=== PATIENT | male | born 1965 | race Caucasian/White ===

== ENCOUNTER 2021-07-29 16:21 | Inpatient (IN) | payer OTHER ==
--- OUTSIDE RECORDS SUMMARY | 2021-07-29 16:24 | XMS REPORT | Continuity of Care Document ---
:1965 Author Organization [facility] t Address [address] [place] [address] Care Team Providers Name Role Phone Taqueria-Keilyo_A_AH Attending Clinician Unavailable Taqueria-Mbayo_A_AH Admitting Clinician Unavailable Payers Payer Name Policy Type Policy Number Effective Date Expiration Date S hema [facility] [place] - [id number] 2019 [employer] 00:00:00 (MEDICARE REPLACEMENT/ADVANT AGE - HMO) Problems Condition Condition Condition Status Onset Resolution Last Treating Co mments Source Name Details Category Date Date Treatment Clinician Date Recurrent Recurrent Problem [facility] - [facility] depressive Me moria disorder, disorder, l in partial in partial Ou tpati remission remission ent Clinics Acute Acute Problem Active [facility] exacerb[facility] exacerbati Lina kes - on of on of Memoria chronic chronic l obstructiv obstructiv Ou tpati e e ent pulmonary pulmonary Clin ics disease disease (COPD) (COPD) Pure Pure Problem Active [facility]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 Medications Ordered Filled Start Stop Current Ordering Indication Dosage Frequency Signature Comments Components Source Medication Medication Date Date Medication? Clinician (SIG) Name Name Albuterol Albuterol Yes Donald [address] [facility] Sulfate Sulfate 7-25 Alexandra needed [facility] - 00:[facility]: Memoria 00 l Outpati ent Clinics Symbicort Symbicort 2019- No Donald [address] [facility] 7-25 - Alexandra [facility] - [facility] Sertraline Sertraline Yes Donald [address] [facility] HCl HCl [facility] Atorvastati Atorvastati Yes Donald not [facility] n Calcium n Calcium Alexandra defined L [facility] Lisinopril Lisinopril Yes Donald [address] [facility] Alexandra [facility] ent Clinics Procedures This patient has no known procedures. Encounters Start End Encounter Admission Attending Care Care Encounter Source Date/Time Date/Time Type Type Clinicians Facility Department ID 2019-10-26 2019-10-26 Outpatient Taqueria-Mbayo VFP VFP [id number] [facility] 06:18:00 06:18:00 _A_AH [id number] Family Practic e 2019-10-26 2019-10-26 Outpatient Taqueria-Mbayo VFP VFP [id number] [facility] 06:18:00 06:18:00 _A_AH [id number] Family Practic e 2019-10-26 2019-10-26 Outpatient Taqueria-Mbayo VFP VFP [id number] [facility] 06:18:00 06:18:00 _A_AH [id number] Family Practic e 2018-03-23 2018-03-23 Outpatient Cinda Pond [id number] [facility] 13:45:00 13:45:00 [facility] 2018-02-08 2018-02-08 Outpatient Cinda Pond [id number] [facility] 11:00:00 11:00:00 [facility] Results This patient has no known results.
[2021-07-29] MEDS ORDERED: METOPROLOL TARTRATE 5 MG/5 ML INJ IV ONE ×2 (17:03→21:21)
[2021-07-29 17:18] LABS: Absolute Lymphocytes (CBC) 1.9 K/uL (0.7-4.9); Basophils % 0.8 % (0-1.3); Hematocrit 43.9 % (39.6-49.0); Lymphocytes % 21.5 % (15.3-44.8); MPV 9.5 fL (7.6-11.3); RBC Red Blood Cell Count 4.44 M/uL (4.33-5.43)
[2021-07-29 17:20] LABS: Protime INR 1.52
[2021-07-29] MEDS ORDERED: ENOXAPARIN 80 MG/0.8 ML SQ ONE (17:46)
[2021-07-29] MEDS ORDERED: NA CHLORIDE 0.9% 500 ML ONE (17:46)
--- NOTE | 2021-07-29 18:00 | RAD REPORT ---
EXAM DESCRIPTION: RAD - Chest Single View - 07/29/2021 5:30 pm CLINICAL HISTORY: DYSPNEA COMPARISON: None TECHNIQUE: AP portable chest image was obtained 07/29/2021 5:30 pm . FINDINGS: Baseline examination shows diffusely prominent interstitial pattern throughout both lung f ields with alveolar opacification scattered in the mid and lower lung kay. Cardiomegaly is present along with prominent vasculature. There is fullness of each hilar region. Trachea is in the midline. Heart and vasculature are normal. No measurable pleural effusion and no pneumothorax. No acute bony abnormality seen. No acute aortic findings suspected. IMPRESSION: Baseline study show was diffusely prominent interstitial and alveolar opacities with car diomegaly and vascular engorgement. CHF/volume overload would be the most likely etiology. Infectious etiology including COVID-19 pneumon ia cannot be excluded and needs correlation with clinical presentation.
[2021-07-29 18:05] LABS: Albumin 3.4 g/dL (3.4-5.0); Bilirubin Direct 0.5 mg/dL (0-0.2); Bilirubin Total 1.3 mg/dL (0.2-1.0); Magnesium 2.3 mg/dL (1.8-2.4); Potassium 4.6 mmol/L (3.5-5.1); Protein, Total 7.1 g/dL (6.4-8.2); Thyroid Stimulating Hormone 2.35 uIU/mL (0.360-3.740); Troponin (Emerg Dept Use Only) 0.02 ng/mL (0.0-0.045)
--- NOTE | 2021-07-29 18:23 | EDPHYS ---
Physician Documentation [facility] Name: Naveed Vieira Age: 55 yrs Sex: Male : 1965 Arrival Date: 07/29/2021 Time: 16:33 Bed 14 Private MD: ED Physician Montez Chowdhury HPI: 07/29 18:11 This 55 yrs old Male presents to ER via Ambulatory with complaints of Breathing jr8 Difficulty. 18:11 Is a 55-year-old male patient that presented to the emergency room with 1 week history jr8 of shortness of breath and palpitations. Patient stated that he got worse today which brought him in for further evaluation. Patient denies any recent upper respiratory infections, fevers, chest pain, drug abuse. Patient does admit to occasional alcohol use. Patient stated that he is supposed to be on medication for mood disorder and blood pressure but currently has discontinued those.. Historical: - Allergies: 16:40 No Known Allergies; ld1 - Home Meds: 16:40 None [Active]; ld1 - PMHx: 16:40 Kidney stone; ld1 16:41 Chronic obstructive lung disease; Asthma; ld1 - PSHx: 16:41 None; ld1 - Immunization history:: Adult Immunizations up to date, Client reports having NOT received the Covid vaccine. - Social history:: Smoking status: Patient reports the use of cigarette tobacco products, smokes one pack cigarettes per day. Patient uses alcohol, on a daily basis. Patient/guardian denies using street drugs. ROS: 18:11 Eyes: Negative for injury, pain, redness, and discharge, ENT: Negative for injury, jr8 pain, and discharge, Neck: Negative for injury, pain, and swelling, Abdomen/GI: Negative for abdominal pain, nausea, vomiting, diarrhea, and constipation, Back: Negative for injury and pain, MS/Extremity: Negative for injury and deformity, Skin: Negative for injury, rash, and discoloration, Neuro: Negative for headache, weakness, numbness, tingling, and seizure. 18:11 Cardiovascular: Positive for orthopnea, palpitations. 18:11 Respiratory: Positive for dyspnea on exertion, shortness of breath. Exam: 18:18 Constitutional: This is a well developed, well nourished patient who is awake, alert, jr8 and in no acute distress. Neck: Trachea midline, no thyromegaly or masses palpated, and no cervical lymphadenopathy. Supple, full range of motion without nuchal rigidity, or vertebral point tenderness. No Meningismus. 18:18 Respiratory: Lungs have equal breath sounds bilaterally, clear to auscultation and percussion. No rales, rhonchi or wheezes noted. No increased work of breathing, no retractions or nasal flaring. Abdomen/GI: Soft, non-tender, with normal bowel sounds. No distension or tympany. No guarding or rebound. No evidence of tenderness throughout. Back: No spinal tenderness. No costovertebral tenderness. Full range of motion. Skin: Warm, dry with normal turgor. Normal color with no rashes, no lesions, and no evidence of cellulitis. MS/ Extremity: Pulses equal, no cyanosis. Neurovascular intact. Full, normal range of motion. Neuro: Awake and alert, GCS 15, oriented to person, place, time, and situation. Cranial nerves II-XII grossly intact. Motor strength 5/5 in all extremities. Sensory grossly intact. 18:18 Cardiovascular: Rate: tachycardic, Rhythm: irregularly irregular, Pulses: Pulses are 2+ in right radial artery and left radial artery. Heart sounds: normal, normal S1and S2, no S3 or S4, no murmur, no rub, no gallop, Edema: is not appreciated, JVD: is not appreciated. Vital Signs: 16:38 BP 120 / 108; Pulse 110; Resp 22; Temp 97.4(TE); Pulse Ox 100% on R/A; Weight 79.38 kg; ld1 Height 5 ft. 6 in. (167.64 cm); Pain 0/10; 17:05 BP 148 / 107; Pulse 177; Resp 20; Pulse Ox 99% ; vg1 17:12 BP 120 / 107; Pulse 142; vg1 17:18 BP 122 / 96; Pulse 132; vg1 17:24 BP 107 / 88; Pulse 125; vg1 16:38 Body Mass Index 28.25 (79.38 kg, 167.64 cm) ld1 MDM: 16:58 Patient medically screened. 8 18:20 Data reviewed: vital signs, nurses notes, lab test result(s), EKG, radiologic studies, jr8 plain films, ultrasound. Data interpreted: Pulse oximetry: on room air is 99 %. Interpretation: normal. Counseling: I had a detailed discussion with the patient and/or guardian regarding: the historical points, exam findings, and any diagnostic results supporting the discharge/admit diagnosis, lab results, radiology results, the need for further work-up and treatment in the hospital. 07/29 16:58 Order name: Basic Metabolic Panel [email or web address]] 07/29 16:58 Order name: CBC with Diff [facility] [[email or web address]] 07/29 16:58 Order name: LFT's; Complete Time: 18:10 [facility] [[email or web address]] 07/29 16:58 Order name: Magnesium; Complete Time: 18:10 [facility] [[email or web address]] 07/29 16:58 Order name: NT PRO-BNP; Complete Time: 18:10 [facility] [[email or web address]] 07/29 16:58 Order name: PT-INR; Complete Time: 17:29 [facility] [[email or web address]] 07/29 16:58 Order name: Troponin (emerg Dept Use Only); Complete Time: 18:10 [facility] [[email or web address]] 07/29 16:58 Order name: TSH; Complete Time: 18:10 [facility] [[email or web address]] 07/29 16:58 Order name: T4 Free; Complete Time: 18:10 [facility] [[email or web address]] 07/29 16:59 Order name: Basic Metabolic Panel; Complete Time: 18:10 EDAK 07/29 16:59 Order name: CBC with Automated Diff; Complete Time: 17:29 EDAK 07/29 18:18 Order name: Lipase; Complete Time: 18:43 07/29 18:46 Order name: SARS-COV-2 RT PCR; Complete Time: 19:32 EDMS 07/29 16:58 Order name: XRAY Chest (1 view); Complete Time: 18:10 [facility] [[email or web address]] 07/29 16:58 Order name: EKG; Complete Time: 16:59 07/29 16:58 Order name: Cardiac monitoring; Complete Time: 17:02 [facility] [[email or web address]] 07/29 16:58 Order name: EKG - Nurse/Tech; Complete Time: 17:02 07/29 16:58 Order name: IV Saline Lock; Complete Time: 17:25 07/29 16:58 Order name: Labs collected and sent; Complete Time: 17:25 [email or web address]] 07/29 16:58 Order name: O2 Per Protocol; Complete Time: 17:02 07/29 16:58 Order name: O2 Sat Monitoring; Complete Time: 17:07/29 18:11 Order name: US Abdomen Limited; Complete Time: 20:02 jr8 Administered Medications: 17:09 Drug: Metoprolol 5 mg Route: IVP; Site: right antecubital; vg1 17:13 Drug: Metoprolol 5 mg Route: IVP; Site: right antecubital; vg1 17:19 Drug: Metoprolol 5 mg Route: IVP; Site: right antecubital; vg1 18:20 Follow up: Response: No adverse reaction; Pt heart rate decreased vg1 18:11 Drug: Lovenox (enoxaparin) 1 mg/kg Route: Sub-Q; Site: abdomen; vg1 18:11 Drug: NS 0.9% 500 ml Route: IV; Rate: bolus; Site: left hand; vg1 20:29 Follow up: IV Status: Completed infusion; IV Intake: 500ml bb 19:28 CANCELLED (Other Intervention Used): Metoprolol TARTRATE 50 mg PO once la1 19:32 Drug: Digoxin 0.5 mg Route: IVP; Site: right antecubital; kd3 Disposition: 07/30 09:02 Co-signature as Attending Physician, Montez Chowdhury MD I agree with the assessment and khari plan of care. Disposition Summary: 07/29/21 18:22 Hospitalization Ordered Hospitalization Status: Inpatient Admission 8 Provider: Pankaj Mead [facility] [[email or web address]] Location: Telemetry/MedSurg (Inpatient) [facility] [[email or web address]] Condition: Stable jr8 Problem: new jr8 Symptoms: have improved jr8 Bed/Room Type: Standard [facility] [[email or web address]] Room Assignment: 430(07/29/21 19:46) Diagnosis - Persistent atrial fibrillation - with RVR jr8 - Acute systolic (congestive) heart failure jr Forms: - Medication Reconciliation Form jr8 - SBAR form jr8 Signatures: Dispatcher [employer] Montez Nunes MD MD cha Roszak, Josh, PA PA jr8 Konrad Meadows FNP-C POWERHOUSE ENGINEER-Cla1 Brenda Vargas, RN RN cg Meera Vargas RN RN vg1 Kelly Mills RN RN ld1 Kay Ziegler RN RN kd3 Dianna Shankar RN bb Corrections: (The following items were deleted from the chart) 07/29 16:42 16:40 PMHx: Kidney disease; ld1 ld1 18:46 17:30 CORONAVIRUS+MRDANY.BRZ ordered. EDMS EDMS : 18:55 Metoprolol TARTRATE 50 mg PO once ordered. la1 la1 46 18:22 jr8 cg
--- NOTE | 2021-07-29 18:23 | ER ---
Nurse's Notes [facility] Name: Naveed Vieira Age: 55 yrs Sex: Male : 1965 Arrival Date: 07/29/2021 Time: 16:33 Bed 14 Private MD: Diagnosis: Persistent atrial fibrillation-with RVR;Acute systolic (congestive) heart failure Presentation: 07/29 16:38 Chief complaint: Patient states: I run out of breath easily when walking. pt c/o SOB. ld1 Coronavirus screen: At this time, the client does not indicate any symptoms associated with coronavirus-19. Ebola Screen: No symptoms or risks identified at this time. Initial Sepsis Screen: Does the patient meet any 2 criteria? No. Patient's initial sepsis screen is negative. Does the patient have a suspected source of infection? No. Patient's initial sepsis screen is negative. Risk Assessment: Do you want to hurt yourself or someone else? Patient reports no desire to harm self or others. Onset of symptoms was July 29, 2021. 16:38 Method Of Arrival: Ambulatory ld1 16:38 Acuity: INDIO 3 ld1 Triage Assessment: 16:41 General: Appears in no apparent distress. uncomfortable, Behavior is calm, cooperative, ld1 appropriate for age. Pain: Denies pain. EENT: No signs and/or symptoms were reported regarding the EENT system. Neuro: Level of Consciousness is awake, alert, obeys commands, Oriented to person, place, time, situation, Appropriate for age. Cardiovascular: Capillary refill < 3 seconds Patient's skin is warm and dry. Cardiovascular: Rhythm is sinus tachycardia. Respiratory: Reports shortness of breath Airway is patent Respiratory effort is even, labored, Respiratory pattern is regular, symmetrical, Onset: The symptoms/episode began/occurred suddenly, the patient has mild shortness of breath. GI: Abdomen is flat, non-distended. : No signs and/or symptoms were reported regarding the genitourinary system. Derm: No signs and/or symptoms reported regarding the dermatologic system. Musculoskeletal: No signs and/or symptoms reported regarding the musculoskeletal system. Historical: - Allergies: 16:40 No Known Allergies; ld1 - Home Meds: 16:40 None [Active]; ld1 - PMHx: 16:40 Kidney stone; ld1 16:41 Chronic obstructive lung disease; Asthma; ld1 - PSHx: 16:41 None; ld1 - Immunization history:: Adult Immunizations up to date, Client reports having NOT received the Covid vaccine. - Social history:: Smoking status: Patient reports the use of cigarette tobacco products, smokes one pack cigarettes per day. Patient uses alcohol, on a daily basis. Patient/guardian denies using street drugs. Screenin:27 Abuse screen: Denies threats or abuse. Nutritional screening: No deficits noted. bb Tuberculosis screening: No symptoms or risk factors identified. Fall Risk None identified. Assessment: 17:10 General: Appears in no apparent distress. uncomfortable, Behavior is calm, cooperative. vg1 Pain: Denies pain. Neuro: Level of Consciousness is awake, alert, obeys commands, Oriented to person, place, time, situation. Cardiovascular: Reports shortness of breath, Patient's skin is warm and dry. Rhythm is atrial fibrillation with rapid ventricular response. Respiratory: Reports shortness of breath at rest on exertion cough that is Airway is patent Respiratory effort is even, labored, Respiratory pattern is tachypnea. GI: Patient currently denies diarrhea, nausea, vomiting. : No signs and/or symptoms were reported regarding the genitourinary system. EENT: No signs and/or symptoms were reported regarding the EENT system. Derm: Skin is intact, is healthy with good turgor. Musculoskeletal: Circulation, motion, and sensation intact. 20:24 Reassessment: Patient is alert, oriented x 3, equal unlabored respirations, skin bb warm/dry/pink. Neuro:. Cardiovascular: Capillary refill < 3 seconds Patient's skin is warm and dry. Rhythm is atrial fibrillation with rapid ventricular response. Respiratory: Respiratory effort is even, unlabored, Respiratory pattern is regular, Breath sounds are coarse bilaterally. Derm: Skin is pink, warm \T\ dry. Musculoskeletal: Circulation, motion, and sensation intact. report called to Padma CHOW for room 430. Vital Signs: 16:38 BP 120 / 108; Pulse 110; Resp 22; Temp 97.4(TE); Pulse Ox 100% on R/A; Weight 79.38 kg; ld1 Height 5 ft. 6 in. (167.64 cm); Pain 0/10; 17:05 BP 148 / 107; Pulse 177; Resp 20; Pulse Ox 99% ; vg1 17:12 BP 120 / 107; Pulse 142; vg1 17:18 BP 122 / 96; Pulse 132; vg1 17:24 BP 107 / 88; Pulse 125; vg1 16:38 Body Mass Index 28.25 (79.38 kg, 167.64 cm) ld1 ED Course: 16:33 Patient arrived in ED. kc5 16:40 Triage completed. ld1 16:41 Arm band placed on left wrist. ld1 16:58 Anshul Ward PA is PHCP. jr8 16:58 Montez Chowdhury MD is Attending Physician. jr8 17:02 Meera Vargas, RN is Primary Nurse. vg1 17:08 Inserted saline lock: 18 gauge in right antecubital area, using aseptic technique. dh4 Blood collected. 17:25 Inserted saline lock: 20 gauge in left hand, using aseptic technique. ,using aseptic vg1 technique. completed by Ana CHOW. 17:30 XRAY Chest (1 view) In Process Unspecified. EDMS 18:21 Pankaj Mead is Hospitalizing Provider. jr8 19:12 US Abdomen Limited In Process Unspecified. EDMS 19:23 Report given to Melissa CHOW. vg1 20:27 Patient has correct armband on for positive identification. bb 20:27 No provider procedures requiring assistance completed. Patient admitted, IV remains in bb place. Administered Medications: 17:09 Drug: Metoprolol 5 mg Route: IVP; Site: right antecubital; vg1 17:13 Drug: Metoprolol 5 mg Route: IVP; Site: right antecubital; vg1 17:19 Drug: Metoprolol 5 mg Route: IVP; Site: right antecubital; vg1 18:20 Follow up: Response: No adverse reaction; Pt heart rate decreased vg1 18:11 Drug: Lovenox (enoxaparin) 1 mg/kg Route: Sub-Q; Site: abdomen; vg1 18:11 Drug: NS 0.9% 500 ml Route: IV; Rate: bolus; Site: left hand; vg1 20:29 Follow up: IV Status: Completed infusion; IV Intake: 500ml bb 19:28 CANCELLED (Other Intervention Used): Metoprolol TARTRATE 50 mg PO once la1 19:32 Drug: Digoxin 0.5 mg Route: IVP; Site: right antecubital; kd3 Intake: 20:29 IV: 500ml; Total: 500ml. vivian Outcome: 18:22 Decision to Hospitalize by Provider. 8 20:27 Admitted to Tele accompanied by tech, via wheelchair, room 430, with chart, Report bb called to Padma CHOW 20:27 Condition: stable 20:27 Instructed on the need for admit. 20:29 Patient left the ED. mw2 Signatures: Dispatcher [employer] EDMS Dianna Shankar, RN RN bb Anshul Ward PA PA jr8 Hernan Fernandez mw2 Jamison Dorantes 4 Meera Vargas RN RN 1 Kelly Mills RN RN ld1 Kay Ziegler RN RN kd3 Serena Hodge kc5 Konrad Meadows NETWORK SECURITY OFFICER[facility] Corrections: (The following items were deleted from the chart) 16:40 16:38 Acuity: INDIO 2 ld1 ld1 16:42 16:40 PMHx: Kidney disease; ld1 ld1 18:46 18:12 CORONAVIRUS+MR.LAB.FEROZ drawn and sent. [facility] [place]
--- NOTE | 2021-07-29 19:13 | P.HP ---
Certification for Inpatient Patient admitted to: Observation With expected LOS: <2 Midnights Patient will require the following post-hospital care: None Practitioner: I am a practitioner with admitting privileges, knowledge of patient current condition, hospital course, and medical plan of care. Services: Services provided to patient in accordance with Admission requirements found in Title 42 Section 412.3 of the Code of Federal Regulations Patient History Date of Service: 07/29/21 Primary Care Provider: None Reason for admission: New onset A. fib RVR History of Present Illness: 55-year-old male with history of COPD, asthma, alcohol and tobacco abuse presents the emergency department for shortness of breath. Patient reports increasing shortness of breath over the course of last week or so. Upon arrival to the emergency department patient noted to be in atrial fibrillation with rapid ventricular response with rates up to 170. Patient was treated with 3 doses of Lopressor 5 mg IV as well as p.o. Lopressor and IV digoxin in the emergency department with some improvement in the rate currently around 120-130. Blood pressure has maintained throughout stay in the emergency department. Labs were significant for creatinine 1.28 BUN 20 GFR 58 glucose 130 7T bili 1.3D bili 0.5 AST 645 ALT 539 alk phos 262 BNP 3137 lipase 64, abdominal ultrasound including liver and gallbladder currently pending. Patient does admit to drinking 3-4 tall boys per day every day in addition to smoking 2 packs/day. Patient was counseled extensively on need for alcohol and tobacco cessation. ED provider wishes to admit for new onset A. fib with rapid ventricular response. - Past Medical/Surgical History -: COPD/asthma -: Alcohol abuse -: Tobacco abuse -: Appendectomy Psychosocial/ Personal History: Unemployed, lives at home with family - Family History Father -: Diabetes Mother -: Diabetes - Social History Smoking Status: Current every day smoker Counseled patient to stop smoking for: less than 10 minutes Smoking therapy provided: No (Patient declined) Alcohol use: Yes CD- Drugs: Yes Caffeine use: Yes Place of Residence: Home Review of Systems 10-point ROS is otherwise unremarkable Respiratory: Cough, Shortness of Breath, Wheezing Cardiovascular: Palpitations, Light Headedness Physical Examination - Physical Exam General: Alert, In no apparent distress, Oriented x3 HEENT: Atraumatic, PERRLA, Mucous membr. moist/pink, EOMI, Sclerae nonicteric Neck: Supple, 2+ carotid pulse no bruit, No LAD, Without JVD or thyroid abnormality Respiratory: Normal air movement, Expiratory wheezes Cardiovascular: Normal S1 S2, Irregular heart rate/rhythm (A. fib RVR rate 130) Capillary refill: <2 Seconds Gastrointestinal: Normal bowel sounds, No tenderness Musculoskeletal: No tenderness Integumentary: No rashes Neurological: Normal speech, Normal strength at 5/5 x4 extr, Normal tone, Normal affect - Studies Laboratory Data (last 24 hrs) 07/29/21 17:06: Lipase 64 L 07/29/21 17:06: PT 17.6 H, INR 1.52 07/29/21 17:06: WBC 9.00, Hgb 14.3, Hct 43.9, Plt Count 264 07/29/21 17:06: Sodium 137, Potassium 4.6, BUN 20 H, Creatinine 1.28, Glucose 137 H, Magnesium 2.3, Total Bilirubin 1.3 H, AST 645 H*, ALT 539 H*, Alkaline Phosphatase 262 H Assessment and Plan - Plan Assessment: New onset atrial fibrillation with rapid ventricular response Acute hepatic injury likely secondary to chronic alcohol abuse COPD Tobacco abuse Plan: New onset atrial fibrillation with rapid ventricular response: Continue with p.o. metoprolol, IV digoxin x2 for better rate control, echocardiogram ordered. Cardiology consult in place. We will also continue with full dose anticoagulation with Lovenox at this time. Monitor on telemetry, obtain thyroid panel and urine drug screen. Acute hepatic injury likely secondary to chronic alcohol abuse: Patient admits to drinking 3 to 4 tablets/day, counseled on need for alcohol cessation. Ultrasound of the liver and gallbladder pending, GI is available news production assistant if necessary. We will also obtain hepatitis and HIV panel. COPD: As needed albuterol inhaler Tobacco abuse: Counseled on need for tobacco cessation. Patient declined NicoDerm patch. DVT PPX: Lovenox full Code status: Discharge Plan: Home Plan to discharge in: 24 Hours - Advance Directives Does patient have a Living Will: No Does patient have a Durable POA for Healthcare: Yes - Code Status/Comfort Care Code Status Assessed: Yes (Full code) Critical Care: No Time Spent Managing Pts Care (In Minutes): 55
[2021-07-29] MEDS ORDERED: DIGOXIN 0.25 MG/ML AMP ONE (19:21)
[2021-07-29] MEDS ORDERED: METOPROLOL TAR 25 MG TAB ONE (19:21)
--- NOTE | 2021-07-29 19:58 | RAD REPORT ---
EXAM DESCRIPTION: US - Abdomen Exam Limited - 07/29/2021 7:12 pm CLINICAL HISTORY: elevated LFTs. R/O Cirrhosis COMPARISON: No comparisons FINDINGS: Liver is 19-20 cm in maximum dimension. No capsule nodularity or focal liver parenchymal l esion. No significant degree of fatty infiltration is identifiable. There are no specific sonographic findings to indicate cirrhosis. Doppler evaluation shows no portal vein abnormality. No gallstones or sludge identified in a normal size gallbladder. No wall of pericholecystic fluid is present. Gallbladder wall thickness is upper normal. No biliary tree dilatation. IMPRESSION: Liver is prominent at 19-20 cm with no focal liver lesions seen. No specific findings fo r cirrhosis. Pericholecystic fluid and borderline gallbladder wall thickening. No stones or sludge seen. This cou ld be secondary to sonographically occult hepatic parenchymal disease. Correlation can also be made w ith any findings of acute gallbladder disease.
[2021-07-29] MEDS ORDERED: ALBUTEROL INHALER 60 PUFF/8 GM IH PRN (20:56)
[2021-07-29] MEDS ORDERED: ONDANSETRON 4 MG/2 ML VIAL IV PRN (20:56)
[2021-07-29] MEDS: METOPROLOL TAR 50 MG TAB PO SCH (21:19)
[2021-07-29] MEDS ORDERED: METOPROLOL TARTRATE 5 MG/5 ML INJ IV STA (21:22)
[2021-07-29] MEDS: ENOXAPARIN 80 MG/0.8 ML SQ SCH (21:31)
[2021-07-29 21:49] VITALS: BMI 28.2
[2021-07-29] MEDS ORDERED: Magnesium Sulfate 2gm IVPB 2 G/50 ML BAG IV ONE (22:17)
[2021-07-29] MEDS ORDERED: NA CHLORIDE 0.9% 500 ML IV ONE (22:19)
[2021-07-29 23:21] LABS: Urine Appearance CLEAR (Clear); Urine Blood NEGATIVE (Negative); Urine Color DK YELLOW (Yellow); Urine Glucose NEGATIVE (Negative); Urine Protein 1+ (Negative); Urine Specific Gravity >=1.030 (1.005-1.030)
[2021-07-29 23:31] LABS: Urine Bilirubin NEGATIVE (Negative); Urine Microscopic Reflex ORDER UMIC
[2021-07-29 23:51] LABS: Urine Bacteria <20 /HPF (NONE SEEN); Urine RBC <5 /HPF (NONE SEEN); Urine Urothelial Cells <5 /HPF (NONE SEEN)
[2021-07-30] MEDS: DIGOXIN 0.25 MG/ML AMP IV SCH ×2 (00:34→09:28)
[2021-07-30] MEDS ORDERED: METOPROLOL TARTRATE 5 MG/5 ML INJ IV STA (02:57)
[2021-07-30 03:42] LABS: Basophils % 1.3 % (0-1.3); Hematocrit 45.4 % (39.6-49.0); MPV 10.2 fL (7.6-11.3)
[2021-07-30 04:00] LABS: Albumin 3.2 g/dL (3.4-5.0); Bilirubin Total 1.4 mg/dL (0.2-1.0); Magnesium 2.5 mg/dL (1.8-2.4); Potassium 4.9 mmol/L (3.5-5.1); Protein, Total 6.9 g/dL (6.4-8.2)
[2021-07-30] MEDS: THIAMINE HCL 100 MG TABLET PO SCH (09:33)
[2021-07-30] MEDS: FOLIC ACID 1 MG TABLET PO SCH (09:33)
[2021-07-30] MEDS: ENOXAPARIN 80 MG/0.8 ML SQ SCH ×2 (09:33→21:57)
[2021-07-30] MEDS: METOPROLOL TAR 50 MG TAB PO SCH ×2 (09:33→21:56)
--- NOTE | 2021-07-30 16:22 | EKG ---
Test Date: 2021-07-29 Test Time: 16:41:19 Chief Hospital Administrator: ALP MEASUREMENT RESULTS: Intervals: Rate: 184 [place]: QRSD: 78 QT: 238 QTc: 416 [place]: P: [place]: QRS: 86 T: -90 INTERPRETIVE STATEMENTS: Atrial fibrillation with rapid ventricular response Septal infarct, age undetermined Abnormal ECG No previous ECG available for comparison Electronically Signed On 07-30-21 16:21:14 WANT AD RECEIVER by Marin Alas
--- NOTE | 2021-07-30 19:25 | P.PN ---
Subjective Date of Service: 07/30/21 Primary Care Provider: None Chief Complaint: New onset A. fib RVR Patient reports feeling much better today compared to yesterday. He states his breathing is much better. His heart rate has improved. Physical Examination - Vital Signs Temperature: 96.8 F Blood Pressure: 123/84 Pulse: 113 Respirations: 19 Pulse Ox (%): 98 - Physical Exam General: Alert, In no apparent distress, Oriented x3 HEENT: Mucous membr. moist/pink, Sclerae nonicteric Neck: Supple, JVD not distended Respiratory: Normal air movement, Other (Mild bibasilar Rales) Cardiovascular: No edema, Regular rate/rhythm, Normal S1 S2 Capillary refill: <2 Seconds Gastrointestinal: Normal bowel sounds, Soft and benign, Non-distended, No tenderness Musculoskeletal: No swelling Integumentary: No rashes, No erythema Neurological: Normal strength at 5/5 x4 extr - Studies Laboratory Data (last 24 hrs) 07/30/21 02:58: Sodium 138, Potassium 4.9, BUN 19 H, Creatinine 1.17, Glucose 110 H, Magnesium 2.5 H, Total Bilirubin 1.4 H, AST 1172 H* D, ALT 789 H* D, Alkaline Phosphatase 284 H, Triglycerides 84, Cholesterol 102, HDL Cholesterol 32 L, Cholesterol/HDL Ratio 3.19 07/30/21 02:58: WBC 8.20, Hgb 14.7, Hct 45.4, Plt Count 266 Assessment And Plan - Current Problems (Diagnosis) (1) Acute systolic heart failure Current Visit: Yes Status: Acute (2) Alcoholic cardiomyopathy Current Visit: Yes Status: Acute (3) Rapid atrial fibrillation Current Visit: Yes Status: Acute (4) Acute liver failure Current Visit: Yes Status: Acute (5) Hepatic congestion Current Visit: Yes Status: Acute - Plan Patient's echocardiogram reported an EF of 10% indicating alcoholic cardiomyopathy with hepatic congestion. Continue supportive measures. Avoid IV fluid. Lasix IV as needed. Atrial fibrillation likely secondary to advanced LV dysfunction. Continue metoprolol. Case discussed with Dr. Alas who recommend patient to stop drinking alcohol. No other cardiac intervention. Start lisinopril. Monitor for alcohol withdrawal and initiate CIWA.
[2021-07-31 03:43] LABS: Basophils % 0.9 % (0-1.3); Hematocrit 45.8 % (39.6-49.0); Lymphocytes % 23.7 % (15.3-44.8); MPV 9.6 fL (7.6-11.3); RBC Red Blood Cell Count 4.55 M/uL (4.33-5.43)
[2021-07-31 03:56] LABS: Albumin 2.9 g/dL (3.4-5.0); Bilirubin Total 0.6 mg/dL (0.2-1.0); Magnesium 2.1 mg/dL (1.8-2.4); Potassium 4.4 mmol/L (3.5-5.1); Protein, Total 6.4 g/dL (6.4-8.2)
--- NOTE | 2021-07-31 07:39 | ECHO ---
HEIGHT: 5 ft 6 in WEIGHT: 175 lb 0 oz DATE OF STUDY: 07/30/[address]: Konrad Meadows NP 2-DIMENSIONAL: YES M.MODE: YES DOPPLER: YES COLOR FLOW: YES TDS: PORTABLE: DEFINITY: BUBBLE STUDY: DIAGNOSIS: ATRIAL FIBRILLATION CARDIAC HISTORY: CATHERIZATION: NO SURGERY: NO PROSTHETIC VALVE: NO PACEMAKER: NO MEASUREMENTS (cm) DIASTOLIC (NORMALS) SYSTOLIC (NORMALS) IVSd 0.9 (0.6-1.2) LA Diam 4.3 (1.9-4.0) LVEF 12% LVIDd 5.9 (3.5-5.7) LVIDs 5.6 (2.0-3.5) %FS 6% LVPWd 0.9 (0.6-1.2) Ao Diam 2.7 (2.0-3.7) 2 DIMENSIONAL ASSESSMENT: RIGHT ATRIUM: NORMAL LEFT ATRIUM: DILATED RIGHT VENTRICLE: NORMAL LEFT VENTRICLE: DILATED TRICUSPID VALVE: NORMAL MITRAL VALVE: NORMAL PULMONIC VALVE: NORMAL AORTIC VALVE: NORMAL PERICARDIAL EFFUSION: NONE AORTIC ROOT: NORMAL LEFT VENTRICULAR WALL MOTION: SEVERE GLOBAL HYPOKINESIS DOPPLER/COLOR FLOW: MILD MITRAL, TRICUSPID AND AORTIC REGURGITATION. COMMENTS: SEVERE GLOBAL HYPOKINESIS. EJECTION FRACTION 12%. MILD MITRAL, TRICUSPID AND AORTIC REGURGITATION. LEFT VENTRICULAR DEFECT. LEFT ATRIAL ENLARGEMENT. ATRIAL FIBRILLATION. NO THROMBUS. TECHNOLOGIST: MIKE GONZALEZ
[2021-07-31] MEDS: THIAMINE HCL 100 MG TABLET PO SCH (08:25)
[2021-07-31] MEDS: ENOXAPARIN 80 MG/0.8 ML SQ SCH ×2 (08:25→20:39)
[2021-07-31] MEDS: FOLIC ACID 1 MG TABLET PO SCH (08:26)
[2021-07-31] MEDS: METOPROLOL TAR 50 MG TAB PO SCH ×2 (08:26→20:39)
[2021-07-31] MEDS: lisinopriL 5 MG TAB PO SCH (08:27)
[2021-07-31] MEDS ORDERED: DIGOXIN 0.25 MG/ML AMP IV ONE (12:00)
--- NOTE | 2021-07-31 17:21 | P.PN ---
Subjective Date of Service: 07/31/21 Primary Care Provider: None Chief Complaint: New onset A. fib RVR Patient reports feeling much better today compared to yesterday. Patient heart rate has been running between 90 and 170. His heart rate increases with the slightest exertion. Physical Examination - Vital Signs Temperature: 98.2 F Blood Pressure: 153/94 Pulse: 117 Respirations: 16 Pulse Ox (%): 96 - Physical Exam General: Alert, In no apparent distress, Oriented x3 HEENT: Mucous membr. moist/pink Neck: JVD not distended Respiratory: Clear to auscultation bilaterally, Normal air movement Cardiovascular: Irregular heart rate/rhythm Gastrointestinal: Normal bowel sounds, Soft and benign, Non-distended, No tenderness Musculoskeletal: No swelling Integumentary: No rashes, No erythema Neurological: Normal strength at 5/5 x4 extr Assessment And Plan - Current Problems (Diagnosis) (1) Acute systolic heart failure Current Visit: Yes Status: Acute (2) Alcoholic cardiomyopathy Current Visit: Yes Status: Acute (3) Rapid atrial fibrillation Current Visit: Yes Status: Acute (4) Acute liver failure Current Visit: Yes Status: Acute (5) Hepatic congestion Current Visit: Yes Status: Acute - Plan Patient's echocardiogram reported an EF of 12% indicating alcoholic cardiomyopathy with hepatic congestion. Avoid IV fluid. Lasix IV as needed. Atrial fibrillation likely secondary to advanced LV dysfunction. Continue metoprolol and titrate. Also added digoxin due to uncontrolled A. fib. Patient seen by cardiology-Dr. Griffith who recommend titrating his metoprolol for rate control. No other cardiac intervention. Started low-dose lisinopril. Monitor for alcohol withdrawal and initiate CIWA. He is high risk for noncompliance. Patient is a candidate for hospice. Social service consult for hospice evaluation.
--- NOTE | 2021-07-31 19:00 | CON ---
Date of Consultation: 07/31/2021 Reason For Consultation: Atrial fibrillation and congestive heart failure. History Of Present Illness: A 55-year-old male, history of chronic alcoholism, presented with signif icant shortness of breath and heart failure symptoms, started on IV diuretics and started to feel bet ter on that. However, he is in atrial fibrillation with rapid ventricular response and responded wel l to rate-controlling medicines. Heart rate is around 100 now. No chest pain. Past Medical History: Reported none except for alcoholism. Medications: None. Allergies: NO KNOWN DRUG ALLERGIES. Family History: No premature coronary disease, cancer. Social History: He is heavy drinker on a daily basis. Does not use any drugs. Review of Systems: All systems reviewed and they were negative except mentioned in the HPI. Physical Examination: Vital Signs: Temperature is 96.4, pulse is between 90 and 110, breathing at 14, blood pressure 102/8 9. General: Pleasant middle-aged male, in no apparent distress. Head and Neck: Pupils are equal, reactive to light. Intact eye movements. No JVD. No cervical lym phadenopathy. Neck: Supple. Thyroid is not enlarged. Lungs: Clear to auscultation bilaterally. No rhonchi, rales, or crackles. No accessory muscle use. Heart: Irregularly irregular. No extra sounds. Abdomen: Soft, nontender. Bowel sounds positive. No organomegaly. No masses or hernia. No rigidi ty or rebound. Extremities: No edema, clubbing, cyanosis. Intact pulses. Skin: No rash. Neurologic: Alert, awake, oriented x3. No acute focal deficits appreciated. Investigations: Liver enzymes are elevated, ALT is down to 554 from 800 and BUN is 14, creatinine 1. 23. Hemoglobin 14.8. Assessment And Plan: 1.Severe systolic dysfunction, likely related to alcoholism. However, coronary artery disease is po ssibility. We will plan on coronary angiogram on him. Had a long discussion with him counseling him against alcohol and alcohol being a toxic agent for the heart and possibly it is playing a major rol e in his EF drop. The patient understands and plan to quit. 2.Atrial fibrillation. Rate is acceptable. Continue beta chapin. Continue lisinopril and Lovenox for now. Use IV Lopressor if needed if the heart rate goes above 110, otherwise attempt to increase the short-acting Toprol for 75 mg twice a day and see if the blood pressure will handle it. As his low ejection fraction could be due to a combination of the atrial fibrillations tachycardia in duced cardiomyopathy versus coronary artery disease, we will plan for coronary angiogram on this gee ent. /MAR Voice ID: [id number] Report ID: [id number]
[2021-08-01 05:13] LABS: Absolute Lymphocytes (CBC) 1.9 K/uL (0.7-4.9); Basophils % 1.2 % (0-1.3); Hematocrit 45.6 % (39.6-49.0); Lymphocytes % 28.8 % (15.3-44.8); MPV 9.3 fL (7.6-11.3); RBC Red Blood Cell Count 4.57 M/uL (4.33-5.43)
[2021-08-01 05:31] LABS: Bilirubin Total 0.9 mg/dL (0.2-1.0); Magnesium 1.9 mg/dL (1.8-2.4); Potassium 3.9 mmol/L (3.5-5.1); Protein, Total 6.7 g/dL (6.4-8.2)
[2021-08-01] MEDS: METOPROLOL TAR 50 MG TAB PO SCH ×2 (08:31→20:05)
[2021-08-01] MEDS: DIGOXIN 0.125 MG TABLET PO SCH (08:32)
[2021-08-01] MEDS: THIAMINE HCL 100 MG TABLET PO SCH (08:32)
[2021-08-01] MEDS: ENOXAPARIN 80 MG/0.8 ML SQ SCH ×2 (08:32→20:06)
[2021-08-01] MEDS: FOLIC ACID 1 MG TABLET PO SCH (08:32)
[2021-08-01] MEDS: lisinopriL 5 MG TAB PO SCH (08:32)
[2021-08-01] MEDS ORDERED: POTASSIUM CL SA 10 MEQ TAB PO ONE (09:00)
--- NOTE | 2021-08-01 16:22 | P.PN ---
Subjective Date of Service: 08/01/21 Primary Care Provider: None Chief Complaint: New onset A. fib RVR Patient reports feeling much better and wants to go home. His heart rate has been running between 105 to 170. His heart rate increases with the slightest exertion. His blood pressure readings are better than yesterday. Physical Examination - Vital Signs Temperature: 97.8 F Blood Pressure: 135/87 Pulse: 113 Respirations: 18 Pulse Ox (%): 97 - Physical Exam General: Alert, In no apparent distress, Oriented x3 HEENT: Mucous membr. moist/pink Neck: JVD not distended Respiratory: Clear to auscultation bilaterally, Normal air movement Cardiovascular: Regular rate/rhythm, Normal S1 S2 Gastrointestinal: Soft and benign, Non-distended, No tenderness Musculoskeletal: No swelling Integumentary: No rashes Neurological: Normal strength at 5/5 x4 extr Assessment And Plan - Current Problems (Diagnosis) (1) Acute systolic heart failure Current Visit: Yes Status: Acute (2) Alcoholic cardiomyopathy Current Visit: Yes Status: Acute (3) Rapid atrial fibrillation Current Visit: Yes Status: Acute (4) Acute liver failure Current Visit: Yes Status: Acute (5) Hepatic congestion Current Visit: Yes Status: Acute - Plan Patient's echocardiogram reported an EF of 12% indicating alcoholic cardiomyopathy with hepatic congestion. Patient appears to be compensated for CHF. Lasix IV as needed. Atrial fibrillation likely secondary to advanced LV dysfunction. Titrated metoprolol to 75 mg twice daily today. Continue digoxin. Case discussed with Dr. Alas. Patient will need a LifeVest. Dr. Griffith also planning to perform cardiac catheterization, probably as an outpatient. Continue low-dose lisinopril. Monitor for alcohol withdrawal and initiate CIWA. He is high risk for noncompliance. Patient is also a candidate for hospice. Awaiting hospice evaluation.
[2021-08-01 17:19] VITALS: O2SAT 96
[2021-08-02 04:38] LABS: Absolute Lymphocytes (CBC) 1.9 K/uL (0.7-4.9); Basophils % 1.1 % (0-1.3); Hematocrit 44.4 % (39.6-49.0); Lymphocytes % 35.7 % (15.3-44.8); MPV 9.1 fL (7.6-11.3); RBC Red Blood Cell Count 4.45 M/uL (4.33-5.43)
[2021-08-02 05:08] LABS: Bilirubin Total 0.6 mg/dL (0.2-1.0); Magnesium 2.1 mg/dL (1.8-2.4); Potassium 3.8 mmol/L (3.5-5.1); Protein, Total 6.7 g/dL (6.4-8.2)
[2021-08-02] MEDS: DIGOXIN 0.125 MG TABLET PO SCH (08:09)
[2021-08-02] MEDS: METOPROLOL TAR 50 MG TAB PO SCH (08:13)
[2021-08-02] MEDS: THIAMINE HCL 100 MG TABLET PO SCH (08:14)
[2021-08-02] MEDS: ENOXAPARIN 80 MG/0.8 ML SQ SCH (08:16)
[2021-08-02] MEDS: FOLIC ACID 1 MG TABLET PO SCH (08:18)
[2021-08-02] MEDS ORDERED: lisinopriL 5 MG TAB PO SCH (09:00)
[2021-08-02] MEDS ORDERED: POTASSIUM CL SA 10 MEQ TAB PO ONE (09:00)
[2021-08-02 10:19] LABS: HIV AG/AB 4TH GEN Non-reactive (Non-reactive)
--- NOTE | 2021-08-02 13:08 | P.DS ---
Admission Date: 07/30/21 Discharge Date: 08/02/21 Primary Care Provider: None Disposition: DC HOME/HOME HEALTH CARE Discharge Condition: FAIR Reason for Admission: New onset A. fib RVR - Problems (1) Acute systolic heart failure Current Visit: Yes Status: Acute (2) Alcoholic cardiomyopathy Current Visit: Yes Status: Acute (3) Rapid atrial fibrillation Current Visit: Yes Status: Acute (4) Acute liver failure Current Visit: Yes Status: Acute (5) Hepatic congestion Current Visit: Yes Status: Acute Brief History of Present Illness: 55-year-old male with history of COPD, asthma, alcohol and tobacco abuse presents the emergency department for shortness of breath. Patient reported increasing shortness of breath over the course of one week Upon arrival to the emergency department patient noted to be in atrial fibrillation with rapid ventricular response with rates up to 170. Patient was treated with 3 doses of Lopressor 5 mg IV as well as p.o. Lopressor and IV digoxin in the emergency department with some improvement in the rate currently around 120-130. Blood pressure has maintained throughout stay in the emergency department. Labs were significant for creatinine 1.28 BUN 20 GFR 58 glucose 130 7T bili 1.3D bili 0.5 AST 645 ALT 539 alk phos 262 BNP 3137 lipase 64. Patient does admit to drinking 3-4 tall boys per day every day in addition to smoking 2 packs/day. Patient was counseled extensively on need for alcohol and tobacco cessation. Patient admitted for further management. Hospital Course: Patient admitted to the medical floor and treated for A. fib with RVR with oral metoprolol. He was seen in consultation by cardiology. Echocardiogram done showed an EF of 12%. Patient diagnosed with acute on chronic systolic biventricular heart failure and alcoholic cardiomyopathy. He was also treated with Lasix for acute systolic heart failure. Patient also has hepatomegaly likely secondary to hepatic congestion from the CHF. Liver enzymes also significantly elevated. Elevated liver enzymes due to combination of hepatic congestion and alcohol hepatitis. LFTs trended down. Amiodarone considered relatively contraindicated due to liver disease. Patient appears to be compensated for CHF. Atrial fibrillation likely secondary to advanced LV dysfunction. Titrated metoprolol to 75 mg twice daily today. On oral digoxin 0.125 mg daily. Heart rate is currently rate controlled Cardiology recommend LifeVest which has been placed on him Dr. Griffith also planning to perform cardiac catheterization as an outpatient. Patient will follow with Dr. Griffith. Patient placed on low-dose lisinopril for CHF and prescribed low-dose Aldactone. He did not develop alcohol withdrawal He is high risk for noncompliance. Patient is also a candidate for hospice but declined hospice. He was made aware that he is high risk for cardiac arrest. His blood pressure has been stable. I discussed with him the need for alcohol cessation, smoking cessation and low-salt diet. Patient has clinically improved. He feels back to baseline. Vital Signs/Physical Exam: Temp Pulse Resp BP Pulse Ox 97.5 F 131 H 20 131/82 98 08/02/21 08:00 08/02/21 08:13 08/02/21 08:00 08/02/21 08:13 08/02/21 08:00 General: Alert, In no apparent distress, Oriented x3 HEENT: Mucous membr. moist/pink Neck: JVD not distended Respiratory: Clear to auscultation bilaterally, Normal air movement Cardiovascular: No edema, Normal S1 S2, Irregular heart rate/rhythm Gastrointestinal: Normal bowel sounds, Soft and benign, Non-distended, No tenderness Musculoskeletal: No swelling Neurological: Normal strength at 5/5 x4 extr, Cranial nerves 3-12 intact Lymphatics: No axilla or inguinal lymphadenopathy Laboratory Data at Discharge: WBC 5.50 K/uL (4.3-10.9) D 08/02/21 04:20 Hgb 14.3 g/dL (13.6-17.9) 08/02/21 04:20 Hct 44.4 % (39.6-49.0) 08/02/21 04:20 Plt Count 252 K/uL (152-406) 08/02/21 04:20 PT 17.6 SECONDS (9.5-12.5) H 07/29/21 17:06 INR 1.52 07/29/21 17:06 Sodium 141 mmol/L (136-145) 08/02/21 04:20 Potassium 3.8 mmol/L (3.5-5.1) 08/02/21 04:20 BUN 7 mg/dL (7-18) 08/02/21 04:20 Creatinine 0.96 mg/dL (0.55-1.3) 08/02/21 04:20 Glucose 115 mg/dL (74-106) H 08/02/21 04:20 Magnesium 2.1 mg/dL (1.8-2.4) 08/02/21 04:20 Total Bilirubin 0.6 mg/dL (0.2-1.0) 08/02/21 04:20 AST 128 U/L (15-37) H 08/02/21 04:20 ALT 323 U/L (12-78) H* 08/02/21 04:20 Alkaline Phosphatase 206 U/L (45-117) H 08/02/21 04:20 Triglycerides 84 mg/dL (<150) 07/30/21 02:58 Cholesterol 102 mg/dL (<200) 07/30/21 02:58 HDL Cholesterol 32 mg/dL (40-60) L 07/30/21 02:58 Cholesterol/HDL Ratio 3.19 07/30/21 02:58 Lipase 64 U/L (73-393) L 07/29/21 17:06 Home Medications: Digoxin [Lanoxin*] 0.125 mg PO DAILY #30 tab 08/02/21 Folic Acid 1 mg PO DAILY #30 tablet 08/02/21 Metoprolol Tartrate [Lopressor*] 75 mg PO BID #60 tab 08/02/21 Spironolactone [Aldactone] 25 mg PO DAILY #30 tablet 08/02/21 Thiamine HCl [Vitamin B-1*] 100 mg PO DAILY #30 tablet 08/02/21 lisinopriL [Prinivil*] 2.5 mg PO DAILY #30 tab 08/02/21 New Medications: Spironolactone [Aldactone] 25 mg PO DAILY #30 tablet Folic Acid 1 mg PO DAILY #30 tablet Digoxin [Lanoxin*] 0.125 mg PO DAILY #30 tab Metoprolol Tartrate [Lopressor*] 75 mg PO BID #60 tab lisinopriL [Prinivil*] 2.5 mg PO DAILY #30 tab Thiamine HCl [Vitamin B-1*] 100 mg PO DAILY #30 tablet Physician Discharge Instructions: Please avoid drinking alcohol. Diet: AHA Activity: Ad hui Followup: NONE,NONE [Primary Care Provider] - 1 Week Indra Griffith MD [ACTIVE - CAN ADMIT] - 1-2 Weeks Time spent managing pt's care (in minutes): 42
[2021-08-02 14:18] LABS: HBsAG Nonreactive (Nonreactive)
[2021-08-02 15:09] VITALS: BP 126/80; TEMP 97.1
--- NOTE | 2021-08-04 12:30 | CON ---
Date of Consultation: 07/30/2021 The patient was admitted on 07/29/2021. I saw the patient on 07/30/2021. Reason For Consultation: Atrial fibrillation. History Of Present Illness: Mr. Vieira is a 55-year-old male without any previous known past medical history except for alcohol abuse. He came in with a week history of shortness of breath and palpitat ion, was found to have rapid atrial fibrillation, rate of 110, normotensive. Has a history of kidney stones, COPD, and asthma. He takes no medication and he is not allergic to anything. Denied any ch est pain or syncope. Denied any fever or chills. Past Medical History: As stated above. Allergies: NONE. Review of Systems: Negative. Social History: Positive for alcohol. Medications: None. Physical Examination: Vital Signs: He was in AFib of 110. Otherwise, vital signs stable and afebrile. HEENT: Negative. Neck: Supple with no bruit. Chest: Clear. Cardiac: Revealed atrial fibrillation with no murmurs, gallops, or rubs. Abdomen: Benign. Extremities: Revealed no clubbing, cyanosis, or edema. Diagnostic Data: Basically unremarkable except for an AST and ALT elevation. The patient's chest x- ray was clear. Impression And Plan: 1.New onset atrial fibrillation. 2.Possible alcoholic cardiomyopathy. The patient is on digoxin, metoprolol, Lovenox, lisinopril. W e should obtain a 2D echocardiogram as soon as possible, so we will be able to manage him better. TIMO/MAR Voice ID: [id number] Report ID: [id number]
--- NOTE | 2021-08-04 20:03 | PN ---
Mr. Vieira was admitted with new onset atrial fibrillation. Dr. Glez and I have been following him. Echocardiogram showed an ejection 15%. The patient needs to be on ADILENE inhibitor, carvedilol, Lasix, aspirin, Aldactone 25 mg daily along with if his blood pressure tolerates it. He has improved. Diur esed well. Still short of breath with minimal exertion. I think he needs to have his alcohol comple tely stopped with 0 consumption. He has alcoholic cardiomyopathy. The case was discussed with him a jemima Mead. We will see him as an outpatient. TIMO/MAR Voice ID: [id number] Report ID: [id number]
== END 2021-08-02 14:30 | disposition home health service (06) | DRG 308 ==
LOC: ER 16:21 → ERHOLD 19:02 → 4TH 20:18 → OBSVTOIN 07-30 10:21
PROVIDERS: ADMIT Internal Medicine; ATTEND Internal Medicine
DX: I48.19 Other persistent atrial fibrillation (principal); K72.00 Acute and subacute hepatic failure without coma; I50.23 Acute on chronic systolic (congestive) heart failure; J44.9 Chronic obstructive pulmonary disease, unspecified; F17.210 Nicotine dependence, cigarettes, uncomplicated; F10.10 Alcohol abuse, uncomplicated; I42.6 Alcoholic cardiomyopathy; K76.1 Chronic passive congestion of liver; T50.916A Underdosing of multiple unspecified drugs, medicaments and biological substances, initial encounter; Z79.899 Other long term (current) drug therapy; Z56.0 Unemployment, unspecified; Z91.128 Patient's intentional underdosing of medication regimen for other reason; Z20.822 Contact with and (suspected) exposure to COVID-19
CPT/HCPCS: 36415; 71045; 76705; 80048; 80053; 80061; 80074; 80076; 80162; 81003; 81015; 83690; 83735; 83880; 84439; 84443; 84484; 85025; 85610; 87389; 93005; 93306; 96361; 96372; 96374; 96375; 99285; G0378; J1160; J3475; J7040; U0003

== ENCOUNTER 2021-08-09 17:49 | Inpatient (IN) | payer OTHER ==
--- OUTSIDE RECORDS SUMMARY | 2021-08-09 17:52 | XMS REPORT | Continuity of Care Document ---
:1965 Author Organization [facility] t Address [address] [place] [address] Care Team Providers Name Role Phone Taqueria-Keilyo_A_AH Attending Clinician Unavailable Taqueria-Mbayo_A_AH Admitting Clinician Unavailable Payers Payer Name Policy Type Policy Number Effective Date Expiration Date S hema [facility] - [id number] 2019 [employer] 00:00:00 (MEDICARE REPLACEMENT/ADVANT AGE - [...] kes - sterolemia sterolemia Me moria l [facility] Essential Essential Problem Active [facility] hypertensi hypertensi Lina kes - on on Memoria l [facility]ics Tobacco Tobacco Problem Active [facility] abuse abuse [facility] Simple Simple Problem Active [facility] chronic chronic [facility] - bronchitis bronchitis Me moria l [facility] Allergies, Adverse Reactions, Alerts This [...] - 00:00: 00:00 Memoria 00 :00 l [facility] Sertraline Sertraline Yes Donald [address] [facility] HCl HCl [facility] Atorvastati Atorvastati Yes Donald not [facility] n Calcium n Calcium Alexandra defined L [facility] Lisinopril Lisinopril Yes Donald [address] [facility] Procedures This patient has no known procedures. Encounters Start End Encounter Admission Attending Care Care Encounter Source Date/Time Date/Time Type Type Clinicians Facility Department ID 2019-10-26 2019-10-26 Outpatient Taqueria-Mbayo VFP VFP [id number] [facility] 06:18:00 06:18:00 _A_AH [id number] Family Practic e 2019-10-26 2019-10-26 Outpatient Taqueria-Mbayo VFP VFP [id number] [facility] 06:18:00 06:18:00 _A_AH [id number] Family Practic e 2019-10-26 2019-10-26 Outpatient Taqueria-Mbayo VFP VFP [id number] [facility] 06:18:00 06:18:00 _A_AH [id number] Family Practic e 2018-03-23 2018-03-23 Outpatient Cinda Pond [id number] [facility] 13:45:00 13:45:00 [facility] 2018-02-08 2018-02-08 Outpatient Cinda Pond [id number] [facility] 11:00:00 11:00:00 [facility] Results This patient has no known results.
[2021-08-09] MEDS ORDERED: METOPROLOL TARTRATE 5 MG/5 ML INJ IV ONE (18:23)
[2021-08-09 18:29] LABS: Absolute Lymphocytes (CBC) 1.6 K/uL (0.7-4.9); Basophils % 0.2 % (0-1.3); Hematocrit 46.3 % (39.6-49.0); Lymphocytes % 20.1 % (15.3-44.8); MPV 9.2 fL (7.6-11.3); RBC Red Blood Cell Count 4.68 M/uL (4.33-5.43)
[2021-08-09 18:45] LABS: Protime INR 1.25
[2021-08-09] MEDS ORDERED: METOPROLOL TAR 50 MG TAB ONE (18:45)
[2021-08-09] MEDS ORDERED: FUROSEMIDE 40 MG/4 ML VIAL ONE (18:45)
[2021-08-09] MEDS ORDERED: METOPROLOL TAR 25 MG TAB ONE (18:46)
[2021-08-09 18:48] LABS: ALT/SGPT 137 U/L (12-78); AST/SGOT 58 U/L (15-37); Albumin 3.3 g/dL (3.4-5.0); Alkaline Phosphatase 237 U/L (45-117); BUN Blood Urea Nitrogen 21 mg/dL (7-18); Bicarbonate 26 mmol/L (21-32); Bilirubin Direct 0.5 mg/dL (0-0.2); Bilirubin Total 1.2 mg/dL (0.2-1.0); Glucose Level 157 mg/dL (74-106); Magnesium 2.1 mg/dL (1.8-2.4); NT PRO-BNP 7436 pg/mL (<125); Potassium 4.6 mmol/L (3.5-5.1); Protein, Total 7.4 g/dL (6.4-8.2); Sodium Level 141 mmol/L (136-145); Troponin (Emerg Dept Use Only) < 0.02 ng/mL (0.0-0.045)
--- NOTE | 2021-08-09 18:49 | ER ---
Nurse's Notes [facility] Name: Naveed Vieira Age: 56 yrs Sex: Male : 1965 Arrival Date: 08/09/2021 Time: 17:50 Bed 5 Private MD: Ajith Jaffe Diagnosis: Chronic atrial fibrillation-with RVR;Unspecified combined systolic (congestive) and diastolic (congestive) heart failure;Dyspnea Presentation: 08/09 18:17 Chief complaint: Patient states: increasing BLE swelling and SOB on exertion since iw being d/c from hospital last week, was admitted for CHF exacerbation and Afib RVR , pt is unsure what meds he is currently on but states he has been taking them as prescribed. Coronavirus screen: At this time, the client does not indicate any symptoms associated with coronavirus-19. Ebola Screen: Patient negative for fever greater than or equal to 101.5 degrees Fahrenheit, and additional compatible Ebola Virus Disease symptoms Patient denies exposure to infectious person. Patient denies travel to an Ebola-affected area in the 21 days before illness onset. No symptoms or risks identified at this time. Initial Sepsis Screen: Does the patient meet any 2 criteria? Yes Does the patient have a suspected source of infection? No. Patient's initial sepsis screen is negative. Risk Assessment: Do you want to hurt yourself or someone else? Patient reports no desire to harm self or others. Onset of symptoms was August 09, 2021. 18:17 Acuity: INDIO 2 iw 18:17 Method Of Arrival: Wheelchair iw Triage Assessment: 18:20 General: Appears distressed, uncomfortable, Behavior is cooperative, appropriate for bp age, anxious. Pain: Complains of pain in right foot and left foot. EENT: No deficits noted. Neuro: Level of Consciousness is awake, alert, obeys commands, Oriented to Appropriate for age. Cardiovascular: Rhythm is atrial fibrillation with rapid ventricular response. Respiratory: No deficits noted. GI: Abdomen is distended. : No signs and/or symptoms were reported regarding the genitourinary system. Derm: No deficits noted. Musculoskeletal: No deficits noted. Historical: - Allergies: 18:20 No Known Allergies; iw - PMHx: 18:20 Chronic obstructive lung disease; iw 18:56 Congestive heart failure; EF 12% 2020; Atrial fibrillation; lopressor/dig; Alcoholism; la1 - Immunization history:: Client reports having NOT received the Covid vaccine. - Social history:: Smoking status: Patient reports the use of cigarette tobacco products, denies chronic smoking, but will smoke occasionally. Screenin:30 Abuse screen: Denies threats or abuse. Denies injuries from another. Nutritional bp screening: No deficits noted. Tuberculosis screening: No symptoms or risk factors identified. Fall Risk None identified. Assessment: 18:30 General: SEE TRIAGE NOTE. bp 19:45 Reassessment:. Neuro: Level of Consciousness is awake, alert, obeys commands, Oriented lp1 to person, place, time, situation. Cardiovascular: Capillary refill < 3 seconds in bilateral fingers Rhythm is atrial fibrillation. Respiratory: Respiratory effort is even, shallow, Respiratory pattern is regular, Breath sounds are clear bilaterally. GI: Abdomen is non-distended, Bowel sounds present X 4 quads. Abd is soft and non tender X 4 quads. : No signs and/or symptoms were reported regarding the genitourinary system. EENT: No signs and/or symptoms were reported regarding the EENT system. Derm: Skin is intact, Skin is dry, Skin is pale. Musculoskeletal: No deficits noted. Vital Signs: 18:17 BP 147 / 94; Pulse 162; Resp 20 S; Temp 97.3; Pulse Ox 94% on R/A; Weight 79.38 kg; iw Height 5 ft. 6 in. (167.64 cm); 19:55 BP 127 / 89; Pulse 129; Resp 21; Temp 97.7(O); Pulse Ox 95% on R/A; lp1 19:57 Pulse 135; lp1 18:17 Body Mass Index 28.25 (79.38 kg, 167.64 cm) iw ED Course: 17:50 Patient arrived in ED. as 17:51 Ajith Jaffe DO is Private Physician. as 18:06 Montez Bills PA is PHCP. cp 18:06 Tamika Leslie MD is Attending Physician. cp 18:10 EKG done, by ED staff, reviewed by Montez WEEMS. em1 18:10 Missed attempt(s): 20 gauge in right antecubital area. iw 18:17 Kendell Ray, RN is Primary Nurse. bp 18:19 Triage completed. iw 18:20 Initial lab(s) drawn, by me, sent to lab. Inserted saline lock: 20 gauge in left iw antecubital area, using aseptic technique. Blood collected. 18:20 Arm band placed on. iw 18:30 Patient has correct armband on for positive identification. Bed in low position. Call bp light in reach. Side rails up X2. 18:36 NT PRO-BNP Sent. bp 18:36 Magnesium Sent. bp 18:36 LFT's Sent. bp 18:36 CBC with Diff Sent. bp 18:36 Basic Metabolic Panel Sent. bp 18:45 XRAY Chest (1 view) In Process Unspecified. EDMS 18:46 Jose Oconnell DO is Hospitalizing Provider. cp 20:03 Primary Nurse role handed off by Kendell Ray, RN mw2 Administered Medications: 18:25 Drug: Metoprolol 5 mg Route: IVP; Site: left antecubital; bp 18:30 Drug: Metoprolol 5 mg Route: IVP; Site: left antecubital; bp 18:35 Drug: Metoprolol 5 mg Route: IVP; Site: left antecubital; bp 18:35 Follow up: Response: No adverse reaction bp 18:45 Drug: Metoprolol 75 mg Route: PO; bp 19:57 Follow up: Pulse 135 bpm; Response: No adverse reaction lp1 18:45 Drug: Lasix (furosemide) 40 mg Route: IVP; Site: left antecubital; bp 19:58 Follow up: Response: No adverse reaction lp1 19:54 Drug: Digoxin 0.5 mg Route: IVP; Site: left antecubital; lp1 Outcome: 18:48 Decision to Hospitalize by Provider. cp 20:30 Patient left the ED. lp1 Signatures: Dispatcher [employer] EDMS Antonette Del Cid Irene RN CLAUDINE Steve Del Cid em1 Fabiola Palafox, RN RN lp1 Konrad Meadows, OPERATIONS FORESTER-C OPERATIONS FORESTER-Cla1 Montez Bills PA PA cp Kendell Ray, RN RN bp Hernan Fernandez mw2 Corrections: (The following items were deleted from the chart) 18:57 18:20 PMHx: Asthma; iw la1 18:57 18:20 PMHx: Kidney stone; iw la1 21:07 21:07 Patient left the ED. lp1 lp1
--- NOTE | 2021-08-09 18:49 | EDPHYS ---
Physician Documentation [facility] Name: Naveed Vieira Age: 56 yrs Sex: Male : 1965 Arrival Date: 08/09/2021 Time: 17:50 Bed 5 Private MD: L[facility] ED Physician Tamika Leslie HPI: 08/09 18:03 This 56 yrs old Male presents to ER via Wheelchair with complaints of Abdominal cp Swelling, Leg Swelling, Feet Swelling. 18:03 The patient presents with abdominal distention that is diffuse. cp 18:03 The patient has shortness of breath at rest. cp 18:03 Onset: The symptoms/episode began/occurred last week. Duration: The symptoms are cp continuous, and are steadily getting worse. The patient's shortness of breath is aggravated by light activity. Associated signs and symptoms: Pertinent negatives: chest pain, productive cough, fever, vomiting. Severity of symptoms: in the emergency department the symptoms are unchanged despite home interventions. Historical: - Allergies: 18:20 No Known Allergies; iw - PMHx: 18:20 Chronic obstructive lung disease; iw 18:56 Congestive heart failure; EF 12% 2020; Atrial fibrillation; lopressor/dig; Alcoholism; la1 - Immunization history:: Client reports having NOT received the Covid vaccine. - Social history:: Smoking status: Patient reports the use of cigarette tobacco products, denies chronic smoking, but will smoke occasionally. ROS: 18:05 Constitutional: Negative for body aches, chills, fever, poor PO intake. cp 18:05 Eyes: Negative for injury, pain, redness, and discharge. cp 18:05 ENT: Negative for ear pain, sore throat, difficulty swallowing, difficulty handling secretions. 18:05 Cardiovascular: Positive for edema, palpitations, Negative for chest pain. 18:05 Respiratory: Positive for shortness of breath, at rest. Negative for cough. 18:05 Abdomen/GI: Negative for abdominal pain, nausea, vomiting, and diarrhea. 18:05 : Negative for urinary symptoms. 18:05 Skin: Negative for rash. 18:05 Neuro: Negative for altered mental status, headache, weakness. 18:05 All other systems are negative. Exam: 18:05 ECG was reviewed by the Attending Physician. cp 18:10 Constitutional: The patient appears alert, awake, non-diaphoretic, non-toxic, well cp developed, well nourished, in obvious distress, mildly distressed. 18:10 Head/Face: Normocephalic, atraumatic. cp 18:10 Eyes: Periorbital structures: appear normal, Conjunctiva: normal, no exudate, no injection, Sclera: no appreciated abnormality, Lids and lashes: appear normal, bilaterally. 18:10 ENT: External ear(s): are unremarkable, Nose: is normal, Mouth: Lips: moist, Oral mucosa: moist, Posterior pharynx: Airway: no evidence of obstruction, patent. 18:10 Neck: ROM/movement: is normal, is supple, without pain, no range of motions limitations. 18:10 Chest/axilla: Inspection: normal. 18:10 Cardiovascular: Rate: tachycardic, Rhythm: irregular, Edema: ankle edema, that is marked, JVD: is not appreciated. 18:10 Respiratory: mild respiratory distress is noted, Respirations: labored breathing, that is mild, shallow respirations, that is mild, Breath sounds: decreased breath sounds, that are moderate, throughout. 18:10 Abdomen/GI: Inspection: distension, that is moderate, Bowel sounds: active, all quadrants, Palpation: abdomen is soft and non-tender, in all quadrants. 18:10 Back: pain, is absent, ROM is normal. 18:10 Skin: cellulitis, is not appreciated, no rash present. 18:10 Neuro: Orientation: to person, place \T\ time. Mentation: is normal, Motor: moves all fours, strength is normal, Sensation: no obvious gross deficits. Vital Signs: 18:17 BP 147 / 94; Pulse 162; Resp 20 S; Temp 97.3; Pulse Ox 94% on R/A; Weight 79.38 kg; iw Height 5 ft. 6 in. (167.64 cm); 19:55 BP 127 / 89; Pulse 129; Resp 21; Temp 97.7(O); Pulse Ox 95% on R/A; lp1 19:57 Pulse 135; lp1 18:17 Body Mass Index 28.25 (79.38 kg, 167.64 cm) iw MDM: 18:11 Patient medically screened. cp 18:55 Data reviewed: vital signs, nurses notes, lab test result(s), EKG, radiologic studies, cp plain films. 18:55 Differential diagnosis: Myocardial Infarction pneumonia, pulmonary edema, Pulmonary cp Embolism Sepsis Unstable Angina. Test interpretation: by ED physician or midlevel provider: ECG, plain radiologic studies. Counseling: I had a detailed discussion with the patient and/or guardian regarding: the historical points, exam findings, and any diagnostic results supporting the discharge/admit diagnosis, lab results, radiology results, the need for further work-up and treatment in the hospital. Physician consultation: Konrad Meadows was contacted at 18:45, regarding admission, to the telemetry unit. patient's condition, and will see patient in ED, shortly. 08/09 18:00 Order name: Basic Metabolic Panel 08/09 18:00 Order name: CBC with Diff 08/09 18:00 Order name: LFT's 08/09 18:00 Order name: Magnesium 08/09 18:00 Order name: NT PRO-BNP 08/09 18:00 Order name: PT-INR; Complete Time: 18:50 08/09 18:00 Order name: Troponin (emerg Dept Use Only); Complete Time: 18:50 08/09 18:01 Order name: Basic Metabolic Panel; Complete Time: 18:50 EDMS 08/09 18:01 Order name: CBC with Automated Diff; Complete Time: 18:50 EDMS 08/09 18:01 Order name: Liver (Hepatic) Function; Complete Time: 18:50 EDMS 08/09 18:01 Order name: Magnesium; Complete Time: 18:50 EDMS 08/09 18:01 Order name: NT PRO-BNP; Complete Time: 18:50 EDMS 08/09 18:06 Order name: Digoxin; Complete Time: 19:07 cp 08/09 18:10 Order name: ETOH Level; Complete Time: 18:50 cp 08/09 18:00 Order name: XRAY Chest (1 view); Complete Time: 19:07 iw 08/09 18:00 Order name: EKG; Complete Time: 18:01 iw 08/09 18:00 Order name: Cardiac monitoring; Complete Time: 18:21 iw 08/09 18:00 Order name: EKG - Nurse/Tech; Complete Time: 18:10 08/09 18:00 Order name: IV Saline Lock; Complete Time: 18:21 08/09 18:00 Order name: Labs collected and sent; Complete Time: 18:21 08/09 18:00 Order name: O2 Per Protocol; Complete Time: 18:21 08/09 18:00 Order name: O2 Sat Monitoring; Complete Time: 18:21 08/09 18:45 Order name: SARS-COV-2 RT PCR EDMS EC:05 Rate is 160 beats/min. Rhythm is irregular. QRS interval is normal. QT interval is cp normal. Interpreted by me. Reviewed by me. Administered Medications: 18:25 Drug: Metoprolol 5 mg Route: IVP; Site: left antecubital; bp 18:30 Drug: Metoprolol 5 mg Route: IVP; Site: left antecubital; bp 18:35 Drug: Metoprolol 5 mg Route: IVP; Site: left antecubital; bp 18:35 Follow up: Response: No adverse reaction bp 18:45 Drug: Metoprolol 75 mg Route: PO; bp 19:57 Follow up: Pulse 135 bpm; Response: No adverse reaction lp1 18:45 Drug: Lasix (furosemide) 40 mg Route: IVP; Site: left antecubital; bp 19:58 Follow up: Response: No adverse reaction lp1 19:54 Drug: Digoxin 0.5 mg Route: IVP; Site: left antecubital; lp1 Disposition: 08/10 07:07 I agree with the assessment and plan of care. ma2 Disposition Summary: 08/09/21 18:48 Hospitalization Ordered Hospitalization Status: Inpatient Admission cp Provider: Jose Oconnell cp Location: Telemetry/MedSurg (Inpatient) cp Condition: Stable cp Problem: an acute exacerbation cp Symptoms: have improved cp Bed/Room Type: Standard cp Room Assignment: 229(08/09/21 20:08) cg Diagnosis - Chronic atrial fibrillation - with RVR cp - Unspecified combined systolic (congestive) and diastolic (congestive) heart failure cp - Dyspnea cp Forms: - Medication Reconciliation Form cp - SBAR form cp Signatures: Dispatcher [employer] Michelle Hilliard RN RN Fabiola Palafox RN RN lp1 Konrad Meadows, EDDIE-C V BELT CURER-Cla1 Montze Bills PA PA cp Brenda Vargas RN RN Kendell Ray RN RN Tamika Rader MD MD ma2 Corrections: (The following items were deleted from the chart) 08/09 18:45 18:11 CORONAVIRUS+[email or web address].BRZ ordered. EDMS EDMS 18:57 18:20 PMHx: Asthma; iw la1 18:57 18:20 PMHx: Kidney stone; la1 20:08 18:48 cp cg
--- NOTE | 2021-08-09 19:03 | RAD REPORT ---
EXAM DESCRIPTION: RAD - Chest Single View - 08/09/2021 6:45 pm CLINICAL HISTORY: DYSPNEA COMPARISON: Chest Single View dated 07/29/2021 FINDINGS: Lines: None. Lungs: Increased prominence of the pulmonary interstitium with bilateral airspace disease. Pleural: Small moderate right and small left pleural effusions . Cardiac: Cardiomegaly. Bones: No acute fractures. Other: IMPRESSION: Widespread airspace disease likely representing pulmonary edema with only mild improveme nt compared with 07/29/2021. Pleural effusions have developed in the interim.
--- NOTE | 2021-08-09 19:06 | P.HP ---
Certification for Inpatient Patient admitted to: Inpatient With expected LOS: >2 Midnights Patient will require the following post-hospital care: None Practitioner: I am a practitioner with admitting privileges, knowledge of patient current condition, hospital course, and medical plan of care. Services: Services provided to patient in accordance with Admission requirements found in Title 42 Section 412.3 of the Code of Federal Regulations Patient History Date of Service: 08/09/21 Primary Care Provider: Dr. Jaffe Reason for admission: Acute CHF, A. fib RVR History of Present Illness: 56-year-old male with history of alcoholic cardiomyopathy with ejection fraction around 12%, atrial fibrillation, COPD presents emergency department for dyspnea, lower extremity edema. Patient was seen in hospital approximately 1 to 2 weeks ago for similar complaint and started on new medications as well as having a LifeVest applied. Patient was offered hospice at that time but declined it was discharged home, known to have high risk for cardiac arrest. Patient was evaluated in the emergency department upon arrival to the ER patient heart rate was 160 A. fib RVR blood pressure 140/90, patient was given Lopressor 5 mg IV x3 as well as 4 mg of Lasix IV heart rate improved labs were significant for creatinine 1.42 GFR 52 glucose 157 BUN 20 1T bili 1.2D bili 0.5 AST 58 ALT 137 alk phos 237 BNP 7436 chest x-ray with moderate to severe volume overload pattern. Patient with some dyspnea even at rest, ED provider wishes to admit for further evaluation and management of acute systolic CHF exacerbation as well as A. fib RVR. Allergies No Known Allergies Allergy (Verified 07/29/21 20:56) Home Medications: Digoxin [Lanoxin*] 0.125 mg PO DAILY #30 tab 08/02/21 Folic Acid 1 mg PO DAILY #30 tablet 08/02/21 Metoprolol Tartrate [Lopressor*] 75 mg PO BID #60 tab 08/02/21 Spironolactone [Aldactone] 25 mg PO DAILY #30 tablet 08/02/21 Thiamine HCl [Vitamin B-1*] 100 mg PO DAILY #30 tablet 08/02/21 lisinopriL [Prinivil*] 2.5 mg PO DAILY #30 tab 08/02/21 - Past Medical/Surgical History -: COPD/asthma -: Alcohol abuse -: Tobacco abuse -: Alcoholic cardiomyopathyEF 12% -: Atrial fibrillation -: Cirrhosis of liver -: LifeVest -: Appendectomy Psychosocial/ Personal History: Unemployed, lives at home with family - Family History Father -: Diabetes Mother -: Diabetes - Social History Smoking Status: Current every day smoker Counseled patient to stop smoking for: less than 10 minutes Smoking therapy provided: No Alcohol use: Yes CD- Drugs: Yes Caffeine use: Yes Place of Residence: Home Review of Systems 10-point ROS is otherwise unremarkable Respiratory: Cough, Shortness of Breath, Sputum, Wheezing Cardiovascular: Chest Pain, Palpitations, Orthopnea, Edema, As per HPI Physical Examination - Physical Exam General: Alert, In no apparent distress, Oriented x3 HEENT: Atraumatic, PERRLA, Mucous membr. moist/pink, EOMI, Sclerae nonicteric Neck: Supple, 2+ carotid pulse no bruit, No LAD, Without JVD or thyroid abnormality Respiratory: Crackles/rales, Expiratory wheezes Cardiovascular: Normal S1 S2, Edema, Irregular heart rate/rhythm Capillary refill: <2 Seconds Gastrointestinal: Normal bowel sounds, No tenderness Musculoskeletal: No tenderness Integumentary: No rashes Neurological: Normal speech, Normal strength at 5/5 x4 extr, Normal tone, Normal affect - Studies Laboratory Data (last 24 hrs) 08/09/21 18:10: PT 14.4 H, INR 1.25 08/09/21 18:10: WBC 8.10 D, Hgb 15.0, Hct 46.3, Plt Count 344 D 08/09/21 18:10: Sodium 141, Potassium 4.6, BUN 21 H, Creatinine 1.42 H, Glucose 157 H, Magnesium 2.1, Total Bilirubin 1.2 H, AST 58 H, ALT 137 H D, Alkaline Phosphatase 237 H Assessment and Plan - Plan Assessment: Dyspnea, edema secondary to acute on chronic systolic congestive heart failurealcoholic cardiomyopathy with known EF of around 12% Atrial fibrillation with rapid ventricular response Alcoholic cirrhosis of the liver COPD History of alcohol/tobacco abuse Plan: Dyspnea, edema secondary to acute on chronic systolic congestive heart failurealcoholic cardiomyopathy with known EF of around 12%: Continue with Aldactone 25 mg p.o. daily, lisinopril to 2.5 mg p.o. daily, metoprolol 75 mg p.o. twice daily, Lasix 40 mg IV 3 times daily, Eliquis 5 mg p.o. twice daily, digoxin 0.125 mcg daily. Monitor on telemetry, 1500 cc/day fluid restriction, daily weights. Cardiology consulted. Patient with LifeVest in place, patient was discharged without prescription for Lasix prior will likely need this, also was not initiated on full dose anticoagulation, have initiated Eliquis will discuss further with cardiology. Atrial fibrillation with rapid ventricular response: Have initiated Eliquis 5 mg p.o. twice daily, continue patient on medications for rate control including metoprolol 75 mg p.o. twice daily and digoxin 0.125 daily. Alcoholic cirrhosis of the liver: LFTs stable, patient reports that he is stop drinking. Patient not a good candidate for amiodarone given liver dysfunction. COPD: We will hold off on nebulizer treatments given A. fib RVR. History of alcohol/tobacco abuse: Patient reports discontinuation of alcohol but still smoking. DVT PPX: Eliquis Code status: Full Discharge Plan: Home Plan to discharge in: Greater than 2 days - Advance Directives Does patient have a Living Will: No Does patient have a Durable POA for Healthcare: Yes - Code Status/Comfort Care Code Status Assessed: Yes (Full code) Critical Care: No Time Spent Managing Pts Care (In Minutes): 55
[2021-08-09] MEDS ORDERED: DIGOXIN 0.25 MG/ML AMP ONE (19:43)
[2021-08-09] MEDS ORDERED: ONDANSETRON 4 MG/2 ML VIAL IV PRN (21:20)
[2021-08-09] MEDS: METOPROLOL TAR 25 MG TAB PO SCH (21:36)
[2021-08-09] MEDS: APIXABAN 5 MG TABLET PO SCH (21:36)
[2021-08-09 21:46] VITALS: BMI 29.9
[2021-08-10 00:09] LABS: Urine Appearance CLEAR (Clear); Urine Bilirubin NEGATIVE (Negative); Urine Blood NEGATIVE (Negative); Urine Color DK YELLOW (Yellow); Urine Glucose NEGATIVE (Negative); Urine Protein TRACE (Negative); Urine Specific Gravity 1.015 (1.005-1.030); Urine Urobilinogen 0.2 mg/dL (0.2-1.0); Urine pH 5.5 (5.0-7.0)
[2021-08-10 00:13] LABS: Urine Microscopic Reflex ORDER UMIC
[2021-08-10] MEDS: FUROSEMIDE 40 MG/4 ML VIAL IV SCH ×3 (00:42→17:10)
[2021-08-10 00:44] LABS: Urine Bacteria 20-50 /HPF (NONE SEEN); Urine Mucus 1+ /HPF (NONE SEEN); Urine RBC <5 /HPF (NONE SEEN)
[2021-08-10] MEDS ORDERED: ALPRAZOLAM 0.25 MG TABLET PO ONE (01:13)
[2021-08-10] MEDS ORDERED: TRAMADOL HCL 50 MG TAB PO PRN (01:14)
[2021-08-10 06:10] LABS: Absolute Lymphocytes (CBC) 1.8 K/uL (0.7-4.9); Basophils % 0.5 % (0-1.3); Hematocrit 47.8 % (39.6-49.0); MPV 9.3 fL (7.6-11.3); RBC Red Blood Cell Count 4.79 M/uL (4.33-5.43)
[2021-08-10 06:29] LABS: Albumin 3.4 g/dL (3.4-5.0); Bilirubin Total 1.2 mg/dL (0.2-1.0); Magnesium 2.5 mg/dL (1.8-2.4); Potassium 4.6 mmol/L (3.5-5.1); Protein, Total 7.6 g/dL (6.4-8.2); Thyroid Stimulating Hormone 1.89 uIU/mL (0.360-3.740)
--- NOTE | 2021-08-10 06:35 | P.PN ---
Subjective Date of Service: 08/10/21 Primary Care Provider: Dr. Jaffe Chief Complaint: Acute CHF, A. fib RVR Subjective: Improving Physical Examination - Vital Signs Temperature: 97.7 F Blood Pressure: 108/71 Pulse: 106 Respirations: 18 Pulse Ox (%): 98 - Studies Laboratory Data (last 24 hrs) 08/09/21 18:10: PT 14.4 H, INR 1.25 08/09/21 18:10: WBC 8.10 D, Hgb 15.0, Hct 46.3, Plt Count 344 D 08/09/21 18:10: Sodium 141, Potassium 4.6, BUN 21 H, Creatinine 1.42 H, Glucose 157 H, Magnesium 2.1, Total Bilirubin 1.2 H, AST 58 H, ALT 137 H D, Alkaline Phosphatase 237 H Assessment & Plan Discharge Plan: Home Plan to discharge in: 24 Hours Physician Review Additional Text: COVID: negative CXR: COMPARISON: Chest Single View dated 07/29/2021 FINDINGS: Lines: None. Lungs: Increased prominence of the pulmonary interstitium with bilateral airspace disease. Pleural: Small moderate right and small left pleural effusions . Cardiac: Cardiomegaly. Bones: No acute fractures. IMPRESSION: Widespread airspace disease likely representing pulmonary edema with only mild improvement compared with 07/29/2021. Pleural effusions have developed in the interim. Physical exam: General: Alert, In no apparent distress, Oriented x3 HEENT: Atraumatic, PERRLA, Mucous membr. moist/pink, EOMI, Sclerae nonicteric Neck: Supple, 2+ carotid pulse no bruit, No LAD, Without JVD or thyroid abnormality Respiratory: Crackles/rales, Expiratory wheezes. Currently on 2 L per nasal cannula Cardiovascular: A. fib rate around 100-110 Capillary refill: <2 Seconds Gastrointestinal: Normal bowel sounds, No tenderness Musculoskeletal: No tenderness Integumentary: 1-2+ pitting edema to the lower extremities. Neurological: Normal speech, Normal strength at 5/5 x4 extr, Normal tone, Normal affect Impression: Dyspnea, edema to the lower extremities secondary to acute on chronic systolic congestive heart failure complicated with alcoholic cardiomyopathy with known EF of around 12% Atrial fibrillation with rapid ventricular response Alcoholic cirrhosis of the liver COPD History of alcohol/tobacco abuse Anxiety Acute renal insufficiency Plan: Dyspnea, edema to the lower extremities secondary to acute on chronic systolic congestive heart failure complicated with alcoholic cardiomyopathy with known EF of around 12%: Compliance with medication addressed in detail. Continue and teach on 1500 cc/day fluid restriction and low-salt diet. Teach on CHF and alcoholic cardiomyopathy. Patient reports he no longer drinks. Continue with diuresis. Currently on IV Lasix 40 mg 3 times a day and Aldactone 25 mg daily. Continue with lisinopril 2.5 mg 1 pill daily. Increase metoprolol to 100 mg 1 pill twice daily. Patient with LifeVest. Will have family bring his battery and charge her for the LifeVest. Advanced directives readdressed with patient. Patient is full code. Patient may require home oxygen at discharge. Neurology consulted. Await further recommendations. Will discuss with social and political studies professor about arranging home health and physical therapy at discharge with home oxygen. Anticipate possible discharge in the next 1 to 2 days. I will turn the service over to the hospitalist team tomorrow. I will go plan of care with him. Atrial fibrillation with rapid ventricular response: Rate better controlled. Digoxin restarted 0.125 mg daily. Eliquis 5 mg 1 pill twice daily restarted. Increase metoprolol to 100 mg 1 pill twice daily. Continue to monitor and address. Compliance with medications addressed in detail. Alcoholic cirrhosis of the liver: LFTs elevated likely from acute CHF. Patient reports that he has stopped drinking. Continue with above plan of care. COPD: Will provide Brovana and Xopenex. Patient may require home oxygen at discharge. Patient will need medication at discharge. History of alcohol/tobacco abuse: Patient reports discontinuation of alcohol but still smoking. Anxiety: Will provide medication for anxiety Acute renal insufficiency: We will monitor renal function. Patient on diuretic therapy. DVT PPX: Eliquis Code status: Full code Discharge Plan: Home with home health and physical therapy with home oxygen Time Spent Managing Pts Care (In Minutes): 55
[2021-08-10] MEDS ORDERED: LORAZEPAM 0.5 MG TABLET PO PRN (07:32)
[2021-08-10] MEDS: ARFORMOTEROL TARTRATE 15 MCG/2 ML VIAL.NEB NEB SCH ×2 (08:06→20:20)
[2021-08-10] MEDS ORDERED: lisinopriL 5 MG TAB PO SCH (09:00)
[2021-08-10] MEDS: FOLIC ACID 1 MG TABLET PO SCH (09:39)
[2021-08-10] MEDS: METOPROLOL TAR 25 MG TAB PO SCH ×2 (09:39→21:52)
[2021-08-10] MEDS: DIGOXIN 0.125 MG TABLET PO SCH (09:39)
[2021-08-10] MEDS: APIXABAN 5 MG TABLET PO SCH ×2 (09:40→21:51)
[2021-08-10] MEDS: SPIRONOLACTONE 25 MG TABLET PO SCH (09:40)
[2021-08-10] MEDS: THIAMINE HCL 100 MG TABLET PO SCH (09:41)
--- NOTE | 2021-08-10 17:54 | CON ---
Date of Consultation: 08/10/2021 Reason For Consultation: Shortness of breath and AFib. History Of Present Illness: A 56-year-old male with history of alcoholic cardiomyopathy with very lo w ejection fraction, atrial fibrillation, who presented with shortness of breath, lower extremity yamilet ma, and orthopnea. He has a LifeVest on. Started on IV Lasix and he appears to be doing slightly be tter. Past Medical History: Congestive heart failure, atrial fibrillation, asthma, COPD, and chronic alcoh olism. Medications: Refer to reconciliation sheet for detailed list. Allergies: NO KNOWN DRUG ALLERGIES. Family History: No premature coronary artery disease or cancer. Social History: He is active smoker and drinks on a regular basis. Review of Systems: All systems reviewed were negative except for what mentioned in HPI. Physical Examination: Vital Signs: Reviewed. Head and Neck: Pupils are equal, reactive to light. Intact eye movements. No JVD. No cervical lym phadenopathy. Neck: Supple. Thyroid is not enlarged. Lungs: Rhonchi bilaterally. No accessory muscle use or muscle retraction. Heart: Irregularly irregular. No extra sounds. Abdomen: Soft, nontender. Bowel sounds positive. No organomegaly. No masses or hernia. No rigidi ty or rebound. Extremities: No clubbing or cyanosis. Intact pulses. Skin: No rash. Neurologic: Alert, awake, oriented x3. No acute focal deficits appreciated. Investigations: Hemoglobin is 15.3. BUN 27, creatinine 1.59. Liver enzymes are elevated. Troponin less than 0.02. Assessment And Recommendations: 1.Acute on chronic systolic congestive heart failure exacerbation. Recommend to back off on the Las ix to 40 mg IV q.12 hours. Monitor BUN, creatinine, electrolytes carefully, and adjust dose further if needed. Agree with lisinopril and beta-chapin. Adjust doses as needed and agree with Aldactone. Recommend to get a nuclear stress test to evaluate for ischemia as a cause for his severely depress ed ejection fraction. The patient is a heavy drinker as well, which could be the reason behind his s everely depressed left ventricular systolic function. The patient was counseled against alcoholism. 2.Atrial fibrillation. Continue beta-chapin. The patient will need to continue anticoagulants as well. SR/MODL Voice ID: [id number] Report ID: [id number]
[2021-08-10] MEDS: LEVALBUTEROL 0.63 MG/3 ML NEB NEB PRN (20:20)
[2021-08-10] MEDS: IPRATROPIUM BROM 0.5MG/2.5ML NEB PRN (20:20)
[2021-08-11 04:06] LABS: Absolute Lymphocytes (CBC) 2.4 K/uL (0.7-4.9); Basophils % 0.2 % (0-1.3); Hematocrit 48.5 % (39.6-49.0); Lymphocytes % 23.6 % (15.3-44.8); MPV 9.1 fL (7.6-11.3); RBC Red Blood Cell Count 4.91 M/uL (4.33-5.43)
[2021-08-11 04:34] LABS: Albumin 2.9 g/dL (3.4-5.0); Bilirubin Total 0.9 mg/dL (0.2-1.0); Magnesium 1.9 mg/dL (1.8-2.4); Potassium 3.9 mmol/L (3.5-5.1); Protein, Total 6.5 g/dL (6.4-8.2)
[2021-08-11] MEDS: METOPROLOL TAR 25 MG TAB PO SCH ×2 (06:09→17:07)
[2021-08-11] MEDS ORDERED: REGADENOSON 0.4 MG/5 ML SYR IV ONE (07:39)
[2021-08-11] MEDS: FOLIC ACID 1 MG TABLET PO SCH (08:18)
[2021-08-11] MEDS: DIGOXIN 0.125 MG TABLET PO SCH (08:18)
[2021-08-11] MEDS: SPIRONOLACTONE 25 MG TABLET PO SCH (08:18)
[2021-08-11] MEDS: THIAMINE HCL 100 MG TABLET PO SCH (08:18)
[2021-08-11] MEDS: FUROSEMIDE 40 MG/4 ML VIAL IV SCH ×2 (08:18→21:10)
[2021-08-11] MEDS: lisinopriL 5 MG TAB PO SCH (08:18)
[2021-08-11] MEDS: APIXABAN 5 MG TABLET PO SCH ×2 (08:19→21:10)
[2021-08-11] MEDS: ARFORMOTEROL TARTRATE 15 MCG/2 ML VIAL.NEB NEB SCH ×3 (08:40→20:00)
--- NOTE | 2021-08-11 09:54 | RAD REPORT ---
EXAM DESCRIPTION: NM - Rest Stress Cardiac Imaging - 08/11/2021 9:41 am CLINICAL HISTORY: Chest pain. COMPARISON: None. TECHNIQUE: The patient was administered 10.8 mCi of Tc 99m Sestamibi prior to resting SPECT imaging of the heart. The patient was then administered 31.7 mCi of Tc 99m Sestamibi following exercise or ph armacologic stress. Multiplanar SPECT images were reviewed. FINDINGS: The stress and rest sequences demonstrate a small area of diminished radiotracer uptake wi thin the inferior apical left ventricular myocardium. The left ventricular ejection fraction equals 24% IMPRESSION: Negative for a myocardial perfusion defect Small area of diminished radiotracer uptake within the inferior apical left ventricular myocardium ma y represent an infarct or attenuation from the diaphragm.
--- NOTE | 2021-08-11 10:22 | RAD REPORT ---
EXAM DESCRIPTION: CLAREChest Single View08/11/2021 6:04 am CLINICAL HISTORY: Shortness of breath COMPARISON: August 09 2021 FINDINGS: Worsening in right basilar opacification. No significant change in mild bilateral pulmonary opacities. Small left pleural effusion IMPRESSION: No significant change in mild bilateral pulmonary opacities probably pulmonary edema Worsening in right basilar opacity probably a combination of atelectasis or pneumonia and pleural eff usion
[2021-08-11] MEDS: IPRATROPIUM BROM 0.5MG/2.5ML NEB PRN (13:10)
[2021-08-11] MEDS: LEVALBUTEROL 0.63 MG/3 ML NEB NEB PRN (13:10)
--- NOTE | 2021-08-11 14:09 | TREADPHA ---
DX: CHEST PAIN Date of Study: 08/11/21 Ht: 5' 6 " Wt: 185 lb 3.2 oz Consulting Physician: SALINA MEDICATIONS: ELIQUIS, LANOXIN, PRINIVIL, LOPRESSOR, XOPENEX HISTORY: LIFE VEST, ATRIAL FIBRILLATION PHYSICIAL EXAMINATION: RESTING B.P.: 103/102 RESTING H.R.: 105 RESTING EKG: ATRIAL FIBRILLATION WITH DIFFUSE T INVERSION WITH PREMATURE VENTRICULAR COMPLEXES. PROTOCOL: LEXISCAN EXERCISE TIME: 3:30 B.P. AT PEAK STRESS: 109/68 IMPRESSION: LEXISCAN INJECTED. CARDIOLITE INJECTED, SEE NUCLEAR MEDICINE REPORT. ATRIAL FIBRILLATION THROUGHOUT TEST (PRE, DURING, POST). NO SUPRA VENTRICLAR TACHYCARDIA OR VENTRICULAR TACHYCARDIA. OCCASIONAL PREMATURE VENTRICULAR COMPLEXES NOTED. NO EKG CHANGES WITH LEXISCAN.
[2021-08-12 04:07] LABS: Absolute Lymphocytes (CBC) 2.3 K/uL (0.7-4.9); Basophils % 1.4 % (0-1.3); MPV 8.7 fL (7.6-11.3)
[2021-08-12 04:18] LABS: Albumin 2.7 g/dL (3.4-5.0); Bilirubin Total 0.7 mg/dL (0.2-1.0); Magnesium 1.9 mg/dL (1.8-2.4); Potassium 3.4 mmol/L (3.5-5.1); Protein, Total 6.1 g/dL (6.4-8.2)
[2021-08-12] MEDS ORDERED: POTASSIUM CL SA 10 MEQ TAB PO ONE (04:26)
[2021-08-12] MEDS: METOPROLOL TAR 25 MG TAB PO SCH ×2 (05:44→18:00)
[2021-08-12] MEDS: ARFORMOTEROL TARTRATE 15 MCG/2 ML VIAL.NEB NEB SCH (08:50)
[2021-08-12] MEDS: THIAMINE HCL 100 MG TABLET PO SCH (08:54)
[2021-08-12] MEDS: APIXABAN 5 MG TABLET PO SCH (08:54)
[2021-08-12] MEDS: DIGOXIN 0.125 MG TABLET PO SCH (08:54)
[2021-08-12] MEDS: lisinopriL 5 MG TAB PO SCH (08:54)
[2021-08-12] MEDS: FOLIC ACID 1 MG TABLET PO SCH (08:54)
[2021-08-12] MEDS: FUROSEMIDE 40 MG/4 ML VIAL IV SCH (08:55)
[2021-08-12] MEDS: SPIRONOLACTONE 25 MG TABLET PO SCH (08:55)
[2021-08-12 17:20] VITALS: O2SAT 97
[2021-08-12 17:21] VITALS: BP 145/82; TEMP 97
--- NOTE | 2021-08-13 08:47 | P.DS ---
Discharge Date: 08/12/21 Primary Care Provider: Dr. Jaffe Disposition: DC HOME/HOME HEALTH CARE Discharge Condition: GOOD Reason for Admission: Acute CHF, A. fib RVR Brief History of Present Illness: Patient is a 56-year-old male with history of alcoholic cardiomyopathy with ejection fraction around 12%, atrial fibrillation, COPD presents emergency department for dyspnea, lower extremity edema. Patient was seen in hospital approximately 1 to 2 weeks ago for similar complaint and started on new medications as well as having a LifeVest applied. Patient was offered hospice at that time but declined it was discharged home, known to have high risk for cardiac arrest. Patient was evaluated in the emergency department upon arrival to the ER patient heart rate was 160 A. fib RVR blood pressure 140/90, patient was given Lopressor 5 mg IV x3 as well as 4 mg of Lasix IV heart rate improved labs were significant for creatinine 1.42 GFR 52 glucose 157 BUN 20 1T bili 1.2D bili 0.5 AST 58 ALT 137 alk phos 237 BNP 7436 chest x-ray with moderate to severe volume overload pattern. Patient with some dyspnea even at rest, ED provider wishes to admit for further evaluation and management of acute systolic CHF exacerbation as well as A. fib RVR. Hospital Course: Patient had a stress test that showed no reversible ischemia. Patient's ejection fraction is low. Patient's EF was reported as 12% on the echocardiogram. We did talk to patient regarding further follow-up with Cardiology for possible defibrillator placement. He understands the importance of following up and he may need future cardiac transplantat. At this time, patient is stable for discharge home with close outpatient follow-up. Vital Signs/Physical Exam: Temp Pulse Resp BP Pulse Ox 97.0 F 83 20 145/82 H 97 08/12/21 16:00 08/12/21 16:00 08/12/21 16:00 08/12/21 16:00 08/12/21 16:00 General: Alert, In no apparent distress, Oriented x3 Laboratory Data at Discharge: WBC 9.10 K/uL (4.3-10.9) 08/12/21 03:34 Hgb 15.1 g/dL (13.6-17.9) 08/12/21 03:34 Hct 46.0 % (39.6-49.0) 08/12/21 03:34 Plt Count 350 K/uL (152-406) 08/12/21 03:34 PT 14.4 SECONDS (9.5-12.5) H 08/09/21 18:10 INR 1.25 08/09/21 18:10 Sodium 143 mmol/L (136-145) 08/12/21 03:34 Potassium 3.7 mmol/L (3.5-5.1) 08/12/21 12:13 BUN 24 mg/dL (7-18) H 08/12/21 03:34 Creatinine 1.36 mg/dL (0.55-1.3) H 08/12/21 03:34 Glucose 98 mg/dL (74-106) 08/12/21 03:34 Magnesium 1.9 mg/dL (1.8-2.4) 08/12/21 03:34 Total Bilirubin 0.7 mg/dL (0.2-1.0) 08/12/21 03:34 AST 54 U/L (15-37) H 08/12/21 03:34 ALT 113 U/L (12-78) H 08/12/21 03:34 Alkaline Phosphatase 168 U/L (45-117) H 08/12/21 03:34 Triglycerides 79 mg/dL (<150) 08/10/21 05:39 Cholesterol 132 mg/dL (<200) 08/10/21 05:39 HDL Cholesterol 36 mg/dL (40-60) L 08/10/21 05:39 Cholesterol/HDL Ratio 3.67 08/10/21 05:39 Home Medications: Digoxin [Lanoxin*] 0.125 mg PO DAILY #30 tab 08/02/21 Folic Acid 1 mg PO DAILY #30 tablet 08/02/21 Spironolactone [Aldactone] 25 mg PO DAILY #30 tablet 08/02/21 Thiamine HCl [Vitamin B-1*] 100 mg PO DAILY #30 tablet 08/02/21 lisinopriL [Prinivil*] 2.5 mg PO DAILY #30 tab 08/02/21 Apixaban [Eliquis] 5 mg PO BID #60 tablet 08/12/21 Metoprolol Tartrate [Lopressor] 100 mg PO BID #60 tablet 08/12/21 New Medications: Apixaban [Eliquis] 5 mg PO BID #60 tablet Metoprolol Tartrate [Lopressor] 100 mg PO BID #60 tablet Physician Discharge Instructions: OK TO DC IV AND DC HOME FOLLOW-UP WITH PRIMARY CARE PROVIDER IN 1-2 WEEKS FOLLOW-UP WITH CARDIOLOGY IN 1-2 WEEKS RETURN TO THE ER IF symptoms worsen CALL or TEXT DR. ACOSTA AT [phone] IF ANY QUESTIONS REGARDING HOSPITAL STAY. PLEASE CALL THE FLOOR AT [phone] IF ANY MEDICATION OR NURSING QUESTIONS. Diet: AHA Activity: Fall precautions Followup: [facility] [Provider Group] - 1-2 Weeks (call to schedule an appointment) Ajith Jaffe DO [Primary Care Provider] - 1-2 Weeks (call to schedule an appointment) Time spent managing pt's care (in minutes): 35
--- NOTE | 2021-08-13 08:48 | P.PN ---
Subjective Date of Service: 08/11/21 Patient status post stress test. Patient is resting and no complaints. Dyspnea on exertion but it is improved. Review of Systems 10-point ROS is otherwise unremarkable Physical Examination - Vital Signs Temperature: 97.0 F Blood Pressure: 145/82 Pulse: 83 Respirations: 20 Pulse Ox (%): 97 - Physical Exam General: Alert, In no apparent distress HEENT: Atraumatic, PERRLA, EOMI Neck: Supple, JVD not distended Respiratory: Clear to auscultation bilaterally, Normal air movement Cardiovascular: Regular rate/rhythm, Normal S1 S2 Gastrointestinal: Normal bowel sounds, No tenderness Musculoskeletal: No tenderness Integumentary: No rashes Neurological: Normal speech, Normal tone, Normal affect Lymphatics: No axilla or inguinal lymphadenopathy - Studies Medications List Reviewed: Yes Assessment & Plan - Problems (Diagnosis) (1) Acute liver failure Status: Acute (2) Acute systolic heart failure Status: Acute (3) Alcoholic cardiomyopathy Status: Acute (4) Hepatic congestion Status: Acute (5) Rapid atrial fibrillation Status: Acute - Plan 1. Echocardiogram 2. Continue with cardiac med 4. Cardiology consultation appreciated 5. Aggressive diuresis 6. Strict I's and O's 7. Repeat CXR 8. Daily weights 9. Education regarding diet and treatment of congestive heart failure Discharge Plan: Home Plan to discharge in: Greater than 2 days - Advance Directives Does patient have a Living Will: No Does patient have a Durable POA for Healthcare: No - Code Status/Comfort Care Code Status Assessed: Yes Code Status: Full Code Critical Care: No Time Spent Managing PTS Care (In Minutes): 40
== END 2021-08-12 18:23 | disposition home health service (06) | DRG 291 ==
LOC: ER 17:49 → ERHOLD 19:08 → 2ND 20:35
PROVIDERS: ADMIT Family Medicine; ATTEND Hospitalist
DX: I50.23 Acute on chronic systolic (congestive) heart failure (principal); K72.00 Acute and subacute hepatic failure without coma; I48.20 Chronic atrial fibrillation, unspecified; I42.6 Alcoholic cardiomyopathy; J44.9 Chronic obstructive pulmonary disease, unspecified; F17.210 Nicotine dependence, cigarettes, uncomplicated; K76.1 Chronic passive congestion of liver; K70.30 Alcoholic cirrhosis of liver without ascites; F41.9 Anxiety disorder, unspecified; N28.9 Disorder of kidney and ureter, unspecified; Z56.0 Unemployment, unspecified; Z79.01 Long term (current) use of anticoagulants; Z79.899 Other long term (current) drug therapy; Z20.822 Contact with and (suspected) exposure to COVID-19
CPT/HCPCS: 36415; 71045; 78452; 80048; 80053; 80061; 80076; 80162; 80320; 81003; 81015; 83735; 83880; 84132; 84439; 84443; 84484; 85025; 85610; 87086; 87088; 93005; 93017; 94010; 94640; 96374; 96375; 99284; A9500; J1160; J1940; J2785; J7605; U0003

== ENCOUNTER 2021-09-15 13:07 | Observation (INO) | payer OTHER ==
--- OUTSIDE RECORDS SUMMARY | 2021-09-15 13:10 | XMS REPORT | Continuity of Care Document ---
:1965 Author Organization [facility] t Address [address] [place] [address] Care Team Providers Name Role Phone [email or web address]_Spangler_G Attending Clinician Unavailable Konrad Abebe Attending Clinician [phone] Taqueria-Mbayo_A_AH Attending Clinician Unavailable GC_BAHC_Spangler_G Admitting Clinician Unavailable Taqueria-Mbayo_A_AH Admitting Clinician Unavailable Payers Payer Name Policy Type Policy Number Effective Date Expiration Date S hema SNYDER (MEDICARE [id number] REPLACEMENT/ADVANT AGE - HMO) [id number] 2019 [facility] 00:00:00 (MEDICARE REPLACEMENT/ADVANT AGE - HMO) Problems This patient has no known problems. Allergies, Adverse Reactions, Alerts This patient has no known allergies or adverse reactions. Medications Ordered Filled Start Stop Current Ordering Indication Dosage Frequency Signature Comments Components Source Medication Medication Date Date Medication? Clinician (SIG) Name Name Albuterol Albuterol Yes Dnoald [address] [facility] Sulfate Sulfate 03-23 [facility] Symbicort Symbicort 2019- No Donald [address] [facility] -09-19 [facility] Sertraline Sertraline Yes Donald [address] [facility] HCl HCl [facility] Atorvastati Atorvastati Yes Donald not [facility] n Calcium n Calcium Alexandra defined [facility] - [facility] Lisinopril Lisinopril Yes Donald [address] [facility] [address] [facility] Procedures This patient has no known procedures. Encounters Start End Encounter Admission Attending Care Care Encounter Source Date/Time Date/Time Type Type Clinicians Facility Department ID 2021-09-05 2021-09-05 ambulatory [facility] [id number] [facility] 2021-09-02 2021-09-02 Outpatient GC_BAHC_Spa PRIV PRIV [id number] [facility] 02:49:00 02:49:00 [email or web address] [id number] Med[facility] 2021-09-01 2021-09-01 Outpatient GC_BAHC_Spa PRIV PRIV [id number] [facility] 01:43:00 01:43:00 ngler_G [id number] Medica l 2021-08-20 2021-08-20 Outpatient GC_BAHC_Spa PRIV PRIV [id number] [facility] 10:08:00 10:08:00 ngler_G [id number] Medica l 2021-08-20 2021-08-20 ambulatory [facility] [id number] [facility] ent Clinics 2021-08-19 2021-08-19 Outpatient GC_BAHC_Spa PRIV PRIV [id number] [facility] 03:43:00 03:43:00 ngler_G [id number] Medica l 2021-08-18 2021-08-18 Outpatient GC_BAHC_Spa PRIV PRIV [id number] [facility] 02:54:00 02:54:00 ngler_G [id number] Medica l 2021-08-18 2021-08-18 Outpatient Seiter, PRIV PRIV [id number] 00:00:00 00:00:00 Roni Silvestre [id number] 2021-08-15 2021-08-15 Outpatient GC_BAHC_Spa PRIV PRIV [id number] [facility] 12:34:00 12:34:00 ngler_G [id number] Medica l 2021-08-06 2021-08-06 ambulatory [facility]LMLC [facility]C [id number] [facility] ent [facility] 2019-10-26 2019-10-26 Outpatient Taqueria-Mbayo VFP VFP [id number] [facility] 06:18:00 06:18:00 _A_AH [id number] Family Practic e 2019-10-26 2019-10-26 Outpatient Taqueria-Mbayo VFP VFP [id number] [facility] 06:18:00 06:18:00 _A_AH [id number] Family Practic e 2019-10-26 2019-10-26 Outpatient Taqueria-Mbayo VFP VFP [id number] [facility] 06:18:00 06:18:00 _A_AH [id number] Family Practic e 2018-03-23 2018-03-23 Outpatient Cinda Loot [id number] [facility] 13:45:00 13:45:00 [facility] ent Clinics 2018-02-08 2018-02-08 Outpatient Brazdayana Loot [id number] [facility] 11:00:00 11:00:00 [facility] ent Clinics Results This patient has no known results.
[2021-09-15 13:35] LABS: Absolute Lymphocytes (CBC) 1.6 K/uL (0.7-4.9); Hematocrit 43.3 % (39.6-49.0); Lymphocytes % 26.1 % (15.3-44.8); MPV 8.7 fL (7.6-11.3)
[2021-09-15 13:37] LABS: Protime INR 1.16
[2021-09-15 13:53] LABS: Albumin 3.3 g/dL (3.4-5.0); Bilirubin Direct 0.3 mg/dL (0-0.2); Bilirubin Total 0.8 mg/dL (0.2-1.0); Magnesium 2.8 mg/dL (1.8-2.4); Potassium 3.8 mmol/L (3.5-5.1); Protein, Total 7.5 g/dL (6.4-8.2); Troponin High Sensitivity 20.9 pg/mL (<58.9)
[2021-09-15] MEDS ORDERED: DIGOXIN 0.25 MG/ML AMP ONE (13:54)
[2021-09-15] MEDS ORDERED: METOPROLOL TARTRATE 5 MG/5 ML INJ IV ONE ×3 (13:54→18:12)
--- NOTE | 2021-09-15 14:14 | RAD REPORT ---
EXAM DESCRIPTION: RAD - Chest Single View - 09/15/2021 2:00 pm CLINICAL HISTORY: DYSPNEA COMPARISON: Portable 08/11/2021 TECHNIQUE: AP portable chest image was obtained 09/15/2021 2:00 pm . FINDINGS: Interstitial markings are mildly prominent throughout all lung kay. Patchy airspace opa cification is present in the lower right lung field. Overall findings are less prominent than seen [place] 13 but may still reflect interstitial edema or infiltrate. Heart size is normal range. Central vasculature is mildly prominent but diminished compared to prior imaging. External cardiac defibrill ator device in place. No measurable pleural effusion and no pneumothorax. No acute bony abnormality s een. No acute aortic findings suspected. IMPRESSION: Diffuse bilateral interstitial and lower right lung field airspace opacification less pr ominent than seen on prior imaging. Interstitial and limited alveolar pulmonary edema favored over infectious etiology.
--- NOTE | 2021-09-15 14:38 | EDPHYS ---
Physician Documentation [facility] Name: Naveed Vieira Age: 56 yrs Sex: Male : 1965 Arrival Date: 09/15/2021 Time: 13:13 Bed 28 Private MD: ED Physician Montez Chowdhury HPI: 09/15 15:06 This 56 yrs old Male presents to ER via Ambulatory with complaints of Arrhythmia. jr8 15:06 The patient has experienced similar episodes in the past, a few times. The patient has jr8 not recently seen a physician. This is a 56-year-old male patient with a history of atrial fibrillation and congestive heart failure that presented to the emergency room with onset of atrial fib with rapid ventricular rate. Patient had noted that his heart rate was elevated when his nurse came over to take his vital signs. Today had felt slightly tired but otherwise had no other complaints. Patient stated that he has been compliant with his medications.. Historical: - Allergies: 13:16 No Known Allergies; jh5 - PMHx: 13:16 Alcoholism; Atrial fibrillation; lopressor/dig; Chronic obstructive lung disease; jh5 Congestive heart failure; EF 12% 2020; - Immunization history:: Adult Immunizations up to date. - Social history:: Smoking status: Patient reports the use of cigarette tobacco products, smokes one pack cigarettes per day. Patient uses alcohol, occasionally. street drugs, marijuana. ROS: 15:06 Eyes: Negative for injury, pain, redness, and discharge, ENT: Negative for injury, jr8 pain, and discharge, Neck: Negative for injury, pain, and swelling, Respiratory: Negative for shortness of breath, cough, wheezing, and pleuritic chest pain, Abdomen/GI: Negative for abdominal pain, nausea, vomiting, diarrhea, and constipation, Back: Negative for injury and pain, MS/Extremity: Negative for injury and deformity, Skin: Negative for injury, rash, and discoloration, Neuro: Negative for headache, weakness, numbness, tingling, and seizure. 15:06 Cardiovascular: Positive for palpitations. Exam: 15:06 Constitutional: This is a well developed, well nourished patient who is awake, alert, jr8 and in no acute distress. 15:06 Neck: Trachea midline, no thyromegaly or masses palpated, and no cervical lymphadenopathy. Supple, full range of motion without nuchal rigidity, or vertebral point tenderness. No Meningismus. Respiratory: Lungs have equal breath sounds bilaterally, clear to auscultation and percussion. No rales, rhonchi or wheezes noted. No increased work of breathing, no retractions or nasal flaring. Abdomen/GI: Soft, non-tender, with normal bowel sounds. No distension or tympany. No guarding or rebound. No evidence of tenderness throughout. Skin: Warm, dry with normal turgor. Normal color with no rashes, no lesions, and no evidence of cellulitis. MS/ Extremity: Pulses equal, no cyanosis. Neurovascular intact. Full, normal range of motion. Neuro: Awake and alert, GCS 15, oriented to person, place, time, and situation. Cranial nerves II-XII grossly intact. Motor strength 5/5 in all extremities. Sensory grossly intact. 15:06 Cardiovascular: Rate: tachycardic, Rhythm: irregularly irregular, Pulses: Pulses are 2+ in right radial artery and left radial artery. Heart sounds: normal, normal S1and S2, Edema: is not appreciated, JVD: is not appreciated. Vital Signs: 13:14 BP 117 / 82; Pulse 149; Resp 17; Temp 98.7; Pulse Ox 98% on R/A; Weight 76.2 kg; Height [facility] 5 ft. 8 in. (172.72 cm); Pain 0/10; 14:23 BP 108 / 91; Pulse 143; Resp 18; Temp 98.4; Pulse Ox 98% ; 5 14:34 BP 110 / 76; Pulse 143; Resp 18; Pulse Ox 98% ; [facility] 14:53 BP 128 / 89; Pulse 122; Resp 18; Pulse Ox 98% ; 5 18:16 BP 140 / 98; Pulse 145; Resp 18; Temp 98.6; Pulse Ox 100% ; 5 13:14 Body Mass Index 25.54 (76.20 kg, 172.72 cm) [facility] MDM: 13:20 Patient medically screened. [facility] 15:06 Data reviewed: vital signs, nurses notes, lab test result(s), EKG, radiologic studies, [facility] plain films. Data interpreted: Pulse oximetry: on room air is 98 %. Interpretation: normal. Counseling: I had a detailed discussion with the patient and/or guardian regarding: the historical points, exam findings, and any diagnostic results supporting the discharge/admit diagnosis, lab results, radiology results, the need for further work-up and treatment in the hospital. 09/15 13:20 Order name: Basic Metabolic Panel; Complete Time: 14:09/15 13:20 Order name: CBC with Diff; Complete Time: 14:09/15 13:20 Order name: LFT's; Complete Time: 14:09/15 13:20 Order name: Magnesium; Complete Time: 14:09/15 13:20 Order name: NT PRO-BNP; Complete Time: 14:09/15 13:20 Order name: PT-INR; Complete Time: 14:09/15 13:20 Order name: Troponin HS; Complete Time: 14:09/15 13:20 Order name: XRAY Chest (1 view); Complete Time: 14:09/15 13:20 Order name: EKG; Complete Time: 1309/15 14:44 Order name: COVID-19/FLU A+B (Document "Date of Onset" if Symptomatic); Complete Time: [facility] 18:09/15 13:20 Order name: Cardiac monitoring; Complete Time: 09/15 13:20 Order name: EKG - Nurse/Tech; Complete Time: 13:09/15 13:20 Order name: IV Saline Lock; Complete Time: 09/15 13:20 Order name: Labs collected and sent; Complete Time: 09/15 13:20 Order name: O2 Per Protocol; Complete Time: 09/15 13:20 Order name: O2 Sat Monitoring; Complete Time: : Administered Medications: 14:07 Drug: Metoprolol 5 mg Route: IVP; Site: left forearm; [facility] 14:07 Drug: Digoxin 0.5 mg Route: IVP; Site: left forearm; [facility] 14:40 Drug: Metoprolol 5 mg Route: IVP; Site: left forearm; [facility] 18:16 Drug: Metoprolol 5 mg Route: IVP; Site: left forearm; [facility] Disposition: 09/16 07:49 Co-signature as Attending Physician, Montez Trenton MD I agree with the assessment and khari plan of care. Disposition Summary: 09/15/21 14:37 Hospitalization Ordered Provider: Jose Oconnell Condition: Stable jr8 Problem: new jr8 Symptoms: have improved jr8 Bed/Room Type: Standard jr8 Hospitalization Status: Observation(09/15/21 14:54) jr8 Location: Telemetry/MedSurg (observation)(09/15/21 18:41) bd Room Assignment: 223(09/15/21 18:41) bd Diagnosis - Chronic atrial fibrillation - with RVR jr8 - Chronic systolic (congestive) heart failure jr8 Forms: - Medication Reconciliation Form jr8 - SBAR form jr8 Signatures: Dispatcher [employer] EDMS Re Saldaña Corey, MD MD cha Roszak, Josh, PA PA jr8 Prabha Michaels, RN RN jh5 Corrections: (The following items were deleted from the chart) 09/15 14:54 14:37 Inpatient Admission jr8 jr8 14:54 14:37 Telemetry/MedSurg (Inpatient) jr8 jr8 14:54 14:37 jr8 jr8 15:12 14:54 Telemetry/MedSurg (observation) 8 bd 15:12 14:54 jr8 bd 18:41 15:12 [facility] ER HOLD bd bd 18:41 15:12 ERHOLD- bd bd
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
--- NOTE | 2021-09-15 15:17 | P.HP ---
Certification for Inpatient Patient admitted to: Observation With expected LOS: <2 Midnights Patient will require the following post-hospital care: Other (Home health/caregiver services) Practitioner: I am a practitioner with admitting privileges, knowledge of patient current condition, hospital course, and medical plan of care. Services: Services provided to patient in accordance with Admission requirements found in Title 42 Section 412.3 of the Code of Federal Regulations Patient History Date of Service: 09/15/21 Primary Care Provider: Dr. Jaffe Reason for admission: A. fib with RVR History of Present Illness: 56-year-old male with history of alcoholic cardiomyopathy, systolic CHF, atrial fibrillation on chronic anticoagulation t patient reports that he was recently discharged. He was sent home with a LifeVest. Luke. Patient has been taking multiple medications. He had ran out of medication for over a week. He has home health agency nurse checked on him. They noted that his heart rate was elevated. He had reported some fatigue, edema to the lower extremity also noted. Some shortness of breath noted as well. Came to the ER for further evaluation. Patient evaluated in the emergency room. Patient found to be in atrial fibrillation with RVR. Rate was in the 160s. He was given 2 doses of metoprolol and digoxin. Patient was admitted for further evaluation and treatment. Allergies No Known Allergies Allergy (Verified 08/09/21 23:35) Home medications list reviewed: Yes Home Medications: Digoxin [Lanoxin*] 0.125 mg PO DAILY #30 tab 08/02/21 Folic Acid 1 mg PO DAILY #30 tablet 08/02/21 Spironolactone [Aldactone] 25 mg PO DAILY #30 tablet 08/02/21 Thiamine HCl [Vitamin B-1*] 100 mg PO DAILY #30 tablet 08/02/21 lisinopriL [Prinivil*] 2.5 mg PO DAILY #30 tab 08/02/21 Apixaban [Eliquis] 5 mg PO BID #60 tablet 08/12/21 Metoprolol Tartrate [Lopressor] 100 mg PO BID #60 tablet 08/12/21 - Past Medical/Surgical History Diabetic: No -: COPD -: Alcohol abuse -: Tobacco abuse -: Alcoholic cardiomyopathyEF 12% -: Atrial fibrillation on chronic anticoagulation the -: Cirrhosis of liver -: LifeVest -: Hypertension -: Systolic CHF -: Appendectomy Psychosocial/ Personal History: Unemployed, lives at home with family - Family History Father -: Diabetes Mother -: Diabetes - Social History Smoking Status: Former smoker Alcohol use: No CD- Drugs: Yes Caffeine use: No Place of Residence: Home Review of Systems General: Weakness, As per HPI Eyes: Unremarkable ENT: Unremarkable Respiratory: Shortness of Breath, As per HPI Cardiovascular: Palpitations, Edema, As per HPI Gastrointestinal: Unremarkable Genitourinary: Unremarkable Musculoskeletal: Pedal edema, As per HPI Integumentary: Unremarkable Neurological: Unremarkable Lymphatics: Unremarkable Physical Examination - Studies Laboratory Data (last 24 hrs) 09/15/21 13:26: PT 13.4 H, INR 1.16 09/15/21 13:26: WBC 6.30, Hgb 14.2, Hct 43.3, Plt Count 263 09/15/21 13:26: Sodium 140, Potassium 3.8, BUN 16, Creatinine 1.22, Glucose 175 H, Magnesium 2.8 H D, Total Bilirubin 0.8, AST 34, ALT 44, Alkaline Phosphatase 196 H Assessment and Plan - Plan COVID: Pending Chest x-ray: COMPARISON: Portable 08/11/2021 TECHNIQUE: AP portable chest image was obtained 09/15/2021 2:00 pm . FINDINGS: Interstitial markings are mildly prominent throughout all lung kay. Patchy airspace opacification is present in the lower right lung field. Overall findings are less prominent than seen August 11 but may still reflect interstitial edema or infiltrate. Heart size is normal range. Central vasculature is mildly prominent but diminished compared to prior imaging. External cardiac defibrillator device in place. No measurable pleural effusion and no pneumothorax. No acute bony abnormality seen. No acute aortic findings suspected. IMPRESSION: Diffuse bilateral interstitial and lower right lung field airspace opacification less prominent than seen on prior imaging. Interstitial and limited alveolar pulmonary edema favored over infectious etiology. Physical Exam: GENERAL: The patient is a well-developed, well-nourished, in no apparent distress. Alert and oriented x3. VITAL SIGNS: Reviewed HEENT: Head is normocephalic and atraumatic. Extraocular muscles are intact. Pupils are equal, round, and reactive to light and accommodation. Nares appeared normal. Mouth is well hydrated and without lesions. Mucous membranes are moist. NECK: Supple. No carotid bruits. No lymphadenopathy or thyromegaly. LUNGS: Clear to auscultation. No crackles or wheezes are heard. HEART: A. fib rate better controlled around 110-120. ABDOMEN: Soft, nontender, and nondistended. Positive bowel sounds. No hepatosplenomegaly was noted. EXTREMITIES: Edema to the lower extremities NEUROLOGIC: The patient is oriented to person, place and time. Strength and sensation are grossly intact. Face is symmetric. SKIN: 1-2+ pitting edema to the lower extremities Impression: Atrial fibrillation with RVR on chronic anticoagulation therapy Dyspnea secondary to acute on chronic systolic CHF with alcoholic cardiomyopathy Hypertension Prior alcohol use Plan: Atrial fibrillation with RVR on chronic anticoagulation therapy: Patient will be admitted for further evaluation and treatment. Patient received 2 doses of IV metoprolol and digoxin in the ER. Rate better controlled. Patient has been without his medication for almost a week. Restart his medication including metoprolol 100 mg twice daily, Eliquis 5 mg 1 pill twice daily, lisinopril 2.5 mg daily, folic acid 1 mg daily, digoxin 0.125 mg daily, and spironolactone 25 mg daily. Will provide IV Lasix 20 mg twice daily. Continue to monitor closely. Patient has a LifeVest in place. we will consult cardiology. Anticipate continued improvement with his reinitiation of medication. Need to arrange for home health and physical therapy at discharge. We will also try to arrange for caregiver services. Patient reports his sister can only visit with him once a week. He does not want to go to a skilled facility. Anticipate home in the next 24 hours.. Dyspnea secondary to acute on chronic systolic CHF with alcoholic cardiomyopathy: We will provide IV Lasix. Continue Aldactone. Hypertension: Restart metoprolol and lisinopril. Prior alcohol use: Patient no longer smoking. Code Status: Full Code DVT prophylaxis: Eliquis Advanced Care Planning-30 minutes: Home discharge with home health and physical therapy along with caregiver services. Discharge Plan: Home Plan to discharge in: 24 Hours - Advance Directives Does patient have a Living Will: No Does patient have a Durable POA for Healthcare: No - Code Status/Comfort Care Code Status Assessed: Yes (Patient is full code) Time Spent Managing Pts Care (In Minutes): 55
[2021-09-15 17:51] LABS: SARS-COV-2 RT PCR NEGATIVE (NEGATIVE)
[2021-09-15] MEDS ORDERED: ONDANSETRON 4 MG/2 ML VIAL IV PRN (21:14)
[2021-09-15] MEDS ORDERED: ACETAMINOPHEN 500 MG TAB PO PRN (21:14)
[2021-09-15] MEDS: FUROSEMIDE 20 MG/ 2ML VIAL IV SCH (21:53)
[2021-09-15] MEDS: METOPROLOL TAR 50 MG TAB PO SCH (21:54)
[2021-09-15] MEDS: APIXABAN 5 MG TABLET PO SCH (21:55)
[2021-09-15 22:35] LABS: Urine Appearance CLEAR (Clear); Urine Bilirubin NEGATIVE (Negative); Urine Blood NEGATIVE (Negative); Urine Color YELLOW (Yellow); Urine Glucose NEGATIVE (Negative); Urine Protein NEGATIVE (Negative); Urine Urobilinogen 0.2 mg/dL (0.2-1.0)
[2021-09-15 23:06] VITALS: BMI 27.1
[2021-09-15 23:25] LABS: Urine Microscopic Reflex ORDER UMIC
[2021-09-15 23:54] LABS: Urine Urothelial Cells <5 /HPF (NONE SEEN)
[2021-09-15 23:55] LABS: Urine Bacteria <20 /HPF (NONE SEEN); Urine RBC <5 /HPF (NONE SEEN)
[2021-09-16] MEDS ORDERED: MELATONIN 5 MG TABLET PO PRN (00:18)
--- NOTE | 2021-09-16 06:00 | P.DS ---
Admission Date: 09/15/21 Discharge Date: 09/16/21 Primary Care Provider: Dr. Jaffe Disposition: DC HOME/HOME HEALTH CARE Discharge Condition: GOOD Reason for Admission: A. fib with RVR Consultations: Cardiology-Dr. Alas Procedures: COVID: negative Chest x-ray: COMPARISON: Portable 08/11/2021 TECHNIQUE: AP portable chest image was obtained 09/15/2021 2:00 pm . FINDINGS: Interstitial markings are mildly prominent throughout all lung kay. Patchy airspace opacification is present in the lower right lung field. Overall findings are less prominent than seen August 11 but may still reflect interstitial edema or infiltrate. Heart size is normal range. Central vasculature is mildly prominent but diminished compared to prior imaging. External cardiac defibrillator device in place. No measurable pleural effusion and no pneumothorax. No acute bony abnormality seen. No acute aortic findings suspected. IMPRESSION: Diffuse bilateral interstitial and lower right lung field airspace opacification less prominent than seen on prior imaging. Interstitial and limited alveolar pulmonary edema favored over infectious etiolo gy. Follow up CXR: COMPARISON: Chest Single View dated 09/15/2021; Chest Single View dated 08/11/2021; Chest Single View dated 08/09/2021; Chest Single View dated 07/29/2021; Rest Stress Cardiac Imaging dated 08/11/2021 FINDINGS: Lines: None. Lungs: Widespread bilateral airspace opacities with mild improvement suspected. Pleural: Blunting at the right costophrenic angle Cardiac: Similar size and configuration. Bones: No acute fractures. IMPRESSION: Widespread airspace disease with mild improvement compared with 09/15/2021 and likely representing edema, pneumonia less likely. Medical Problem List Atrial fibrillation with RVR on chronic anticoagulation therapy Dyspnea secondary to acute on chronic systolic CHF with alcoholic cardiomyopathy with prior EF of 12% currently with LifeVest Hypertension Prior alcohol use Brief History of Present Illness: 56-year-old male with history of alcoholic cardiomyopathy, systolic CHF, atrial fibrillation on chronic anticoagulation t patient reports that he was recently discharged. He was sent home with a LifeVest. Herrene. Patient has been taking multiple medications. He had ran out of medication for over a week. He has home health agency nurse checked on him. They noted that his heart rate was elevated. He had reported some fatigue, edema to the lower extremity also noted. Some shortness of breath noted as well. Came to the ER for further evaluation. Patient evaluated in the emergency room. Patient found to be in atrial fibrillation with RVR. Rate was in the 160s. He was given 2 doses of metoprolol and digoxin. Patient was admitted for further evaluation and treatment. Hospital Course: Patient presented with atrial fibrillation with RVR. Patient had been without medication for almost a week. Patient was treated in the emergency room with IV metoprolol and digoxin. Rate now better controlled. All medications restarted. Patient has LifeVest in place. Case discussed with cardiology. No intervention required. At discharge social work to help arrange to continue [facility] health and physical therapy. We will also help arrange for the possibility of care provider at home to help with his needs. Education on the importance of maintaining his medications was addressed in detail. His family is to help with this. At discharge the patient will continue with his current medications including metoprolol 100 mg 1 pill twice daily, Eliquis 5 mg 1 pill twice daily, lisinopril 2.5 mg daily, folic acid 1 mg daily, digoxin 0.125 mg daily, and spironolactone 25 mg daily. Compliance with medication address in detail. Patient will also continue with a 1500 cc/day fluid restriction and low-salt diet. Recommend follow-up with cardiology in 1 week to follow-up this hospitalization. Cardiology will help patient arrange for internal defibrillator pacemaker placement in the future. Patient will continue with his LifeVest for now. Recommend follow-up with PCP to further monitor and address. Patient also had some shortness of breath. Acute on chronic systolic CHF noted with history of alcoholic cardiomyopathy. Prior ejection fraction around 12%. At discharge the patient will continue with Aldactone 25 mg daily. At discharge recommend to continue 1500 cc/day fluid restriction and low-salt diet. If his weight increases by more than 5 pounds adjustment in Aldactone or additional medicationLasix may be required. This can be done with the help of his PCP or cardiology. At discharge patient on room air. Education on CHF provided. Patient with hypertension. Overall stable. At discharge patient will continue with his current medications of metoprolol 100 mg 1 pill twice daily and lisinopril 2.5 mg daily. Recommend to maintain blood pressure less than 130/80. Further adjustment can be done with the help of his PCP or cardiology if blood pressure remains above 140/90. Patient with prior alcohol use. At discharge patient may continue with thiamine 100 mg daily. Patient will continue with alcohol cessation at discharge. Vital Signs/Physical Exam: Temp Pulse Resp BP Pulse Ox 97.3 F 102 H 18 153/100 H 94 09/16/21 00:20 09/16/21 00:20 09/16/21 00:20 09/16/21 00:20 09/16/21 00:20 General: Alert, In no apparent distress, Oriented x3, Cooperative HEENT: Atraumatic Neck: Supple Respiratory: Clear to auscultation bilaterally, Normal air movement Cardiovascular: Irregular heart rate/rhythm (A. fib rate controlled) Gastrointestinal: Normal bowel sounds, No tenderness, No masses, No rebound, No guarding Musculoskeletal: No erythema, No tenderness, No warmth Integumentary: No tenderness/swelling, No erythema, No warmth, No cyanosis Neurological: Normal speech, Normal strength at 5/5 x4 extr, Normal tone, Normal affect Laboratory Data at Discharge: WBC 6.30 K/uL (4.3-10.9) 09/15/21 13:26 Hgb 14.2 g/dL (13.6-17.9) 09/15/21 13:26 Hct 43.3 % (39.6-49.0) 09/15/21 13:26 Plt Count 263 K/uL (152-406) 09/15/21 13:26 PT 13.4 SECONDS (9.5-12.5) H 09/15/21 13:26 INR 1.16 09/15/21 13:26 Sodium 140 mmol/L (136-145) 09/15/21 13:26 Potassium 3.8 mmol/L (3.5-5.1) 09/15/21 13:26 BUN 16 mg/dL (7-18) 09/15/21 13:26 Creatinine 1.22 mg/dL (0.55-1.3) 09/15/21 13:26 Glucose 175 mg/dL (74-106) H 09/15/21 13:26 Magnesium 2.8 mg/dL (1.8-2.4) H D 09/15/21 13:26 Total Bilirubin 0.8 mg/dL (0.2-1.0) 09/15/21 13:26 AST 34 U/L (15-37) 09/15/21 13:26 ALT 44 U/L (12-78) 09/15/21 13:26 Alkaline Phosphatase 196 U/L (45-117) H 09/15/21 13:26 Home Medications: Digoxin [Lanoxin*] 0.125 mg PO DAILY #30 tab 08/02/21 Folic Acid 1 mg PO DAILY #30 tablet 08/02/21 Spironolactone [Aldactone] 25 mg PO DAILY #30 tablet 08/02/21 Thiamine HCl [Vitamin B-1*] 100 mg PO DAILY #30 tablet 08/02/21 lisinopriL [Prinivil*] 2.5 mg PO DAILY #30 tab 08/02/21 Apixaban [Eliquis] 5 mg PO BID #60 tablet 08/12/21 Metoprolol Tartrate [Lopressor] 100 mg PO BID #60 tablet 08/12/21 Physician Discharge Instructions: Patient presented with atrial fibrillation with RVR. Patient had been without medication for almost a week. Patient was treated in the emergency room with IV metoprolol and digoxin. Rate now better controlled. All medications restarted. Patient has LifeVest in place. Case discussed with cardiology. No intervention required. At discharge social work to help arrange to continue home health and physical therapy. We will also help arrange for the possibility of care provider at home to help with his needs. Education on the importance of maintaining his medications was addressed in detail. His family is to help with this. At discharge the patient will continue with his current medications including metoprolol 100 mg 1 pill twice daily, Eliquis 5 mg 1 pill twice daily, lisinopril 2.5 mg daily, folic acid 1 mg daily, digoxin 0.125 mg daily, and spironolactone 25 mg daily. Compliance with medication address in detail. Patient will also continue with a 1500 cc/day fluid restriction and low-salt diet. Recommend follow-up with cardiology in 1 week to follow-up this hospitalization. Cardiology will help patient arrange for internal defibrillator pacemaker placement in the future. Patient will continue with his LifeVest for now. Recommend follow-up with PCP to further monitor and address. Patient also had some shortness of breath. Acute on chronic systolic CHF noted with history of alcoholic cardiomyopathy. Prior ejection fraction around 12%. At discharge the patient will continue with Aldactone 25 mg daily. At discharge recommend to continue 1500 cc/day fluid restriction and low-salt diet. If his weight increases by more than 5 pounds adjustment in Aldactone or additional medicationLasix may be required. This can be done with the help of his PCP or cardiology. At discharge patient on room air. Education on CHF provided. Patient with hypertension. Overall stable. At discharge patient will continue with his current medications of metoprolol 100 mg 1 pill twice daily and lisinopril 2.5 mg daily. Recommend to maintain blood pressure less than 130/80. Further adjustment can be done with the help of his PCP or cardiology if blood pressure remains above 140/90. Patient with prior alcohol use. At discharge patient may continue with thiamine 100 mg daily. Patient will continue with alcohol cessation at discharge. Diet: AHA Activity: Ad hui Followup: NONE,NONE [Primary Care Provider] - Time spent managing pt's care (in minutes): 55
[2021-09-16 06:25] LABS: Absolute Lymphocytes (CBC) 1.9 K/uL (0.7-4.9); Hematocrit 45.1 % (39.6-49.0); Lymphocytes % 29.8 % (15.3-44.8); MPV 8.9 fL (7.6-11.3); RBC Red Blood Cell Count 4.71 M/uL (4.33-5.43)
[2021-09-16 06:55] LABS: Magnesium 2.3 mg/dL (1.8-2.4); Potassium 3.8 mmol/L (3.5-5.1)
--- NOTE | 2021-09-16 07:30 | RAD REPORT ---
EXAM DESCRIPTION: RAD - Chest Single View - 09/16/2021 6:16 am CLINICAL HISTORY: follow up CHF COMPARISON: Chest Single View dated 09/15/2021; Chest Single View dated 08/11/2021; Chest Single View dated 08/09/2021; Chest Single View dated 07/29/2021; Rest Stress Cardiac Imaging dated 08/11/2021 FINDINGS: Lines: None. Lungs: Widespread bilateral airspace opacities with mild improvement suspected. Pleural: Blunting at the right costophrenic angle Cardiac: Similar size and configuration. Bones: No acute fractures. Other: IMPRESSION: Widespread airspace disease with mild improvement compared with 09/15/2021 and likely re presenting edema, pneumonia less likely.
[2021-09-16] MEDS ORDERED: lisinopriL 5 MG TAB PO SCH ×2 (09:00)
[2021-09-16] MEDS ORDERED: THIAMINE HCL 100 MG TABLET PO SCH (09:00)
[2021-09-16] MEDS ORDERED: FOLIC ACID 1 MG TABLET PO SCH (09:00)
[2021-09-16] MEDS ORDERED: POTASSIUM CL SA 10 MEQ TAB PO ONE (09:00)
[2021-09-16] MEDS ORDERED: SPIRONOLACTONE 25 MG TABLET PO SCH (09:00)
[2021-09-16] MEDS ORDERED: DIGOXIN 0.125 MG TABLET PO SCH (09:00)
[2021-09-16 09:06] VITALS: BP 112/89; TEMP 97.8
[2021-09-16] MEDS: METOPROLOL TAR 50 MG TAB PO SCH (09:38)
[2021-09-16] MEDS: FUROSEMIDE 20 MG/ 2ML VIAL IV SCH (09:39)
[2021-09-16] MEDS: APIXABAN 5 MG TABLET PO SCH (09:39)
[2021-09-16 10:50] VITALS: O2SAT 98
--- NOTE | 2021-09-17 07:29 | EKG ---
Test Date: 2021-09-15 Test Time: 13:31:59 Die Cutter Apprentice: ELLIS MEASUREMENT RESULTS: Intervals: Rate: 136 MA: QRSD: 80 QT: 292 QTc: 439 [place]: P: MA: QRS: 97 T: 261 INTERPRETIVE STATEMENTS: Atrial fibrillation with rapid ventricular response Rightward axis Septal infarct, age undetermined T wave abnormality, consider inferolateral ischemia Abnormal ECG Compared to ECG 08/09/2021 18:02:32 T-wave abnormality now present ST (T wave) deviation no longer present Myocardial infarct finding still present Possible ischemia still present Electronically Signed On 09-17-21 07:26:27 [employer] INSURANCE EXAMINER by Marin Alas
== END 2021-09-16 10:36 | disposition home health service (06) ==
LOC: ER 13:07 → ERHOLD 15:03 → 2ND 19:35
PROVIDERS: ADMIT Family Medicine; ATTEND Family Medicine
DX: I48.91 Unspecified atrial fibrillation (principal); I11.0 Hypertensive heart disease with heart failure; I50.23 Acute on chronic systolic (congestive) heart failure; I42.6 Alcoholic cardiomyopathy; F10.11 Alcohol abuse, in remission; J44.9 Chronic obstructive pulmonary disease, unspecified; K74.60 Unspecified cirrhosis of liver; Z91.14 Patient's other noncompliance with medication regimen; Z79.01 Long term (current) use of anticoagulants; Z87.891 Personal history of nicotine dependence; Z20.822 Contact with and (suspected) exposure to COVID-19; Z83.3 Family history of diabetes mellitus
CPT/HCPCS: 93005; 87088; 85025 ×2; 87086; 80048 ×2; 36415; 83735 ×2; 85610; 80076; 84484; 83880; 0240U; 71045 ×2; J1940 ×2; J1160; 81003; 81015; 96374; 96375; 99284; G0378

== ENCOUNTER 2021-10-10 00:20 | Inpatient (IN) | payer OTHER ==
[2021-10-10] MEDS ORDERED: AMIODARONE IN DEXTROSE,ISO-OSM 360 MG/200 ML BAG IV ONE (00:24)
--- OUTSIDE RECORDS SUMMARY | 2021-10-10 00:24 | XMS REPORT | Continuity of Care Document ---
:1965 Author Organization Formerly [facility] t Address [address] [place] [address] Care Team Providers Name Role Phone Domo Jaffe Attending Clinician Unavailable GC_BAHC_Spangler_G Attending Clinician Unavailable Konrad Abebe Attending Clinician [phone] Taqueria-Mbayo_A_AH Attending Clinician Unavailable GC_BAHC_Spangler_G Admitting Clinician Unavailable Taqueria-Mbayo_A_AH Admitting Clinician Unavailable Payers Payer Name Policy Type Policy Number Effective Date Expiration Date S hema SNYDER (MEDICARE [id number] REPLACEMENT/ADVANT AGE - HMO) [facility] [id number] [facility] (MEDICARE REPLACEMENT/ADVANT AGE - HMO) [...] n Calcium Alexandra defined [facility] Lisinopril Lisinopril Yes Donald [address] [facility] Procedures This patient has no known procedures. Encounters Start End Encounter Admission Attending Care Care Encounter Source Date/Time Date/Time Type Type Clinicians Facility Department ID 2021-09-24 Outpatient Jaffe, STLMLC [facility] [id number] [facility] 14:27:59 Ajith [id number] [facility] 2021-09-24 Outpatient STLMLC [facility] [id number] [facility] 14:24:15 [id number] [facility] 2021-09-05 2021-09-05 [id number] 2021-09-02 2021-09-02 Outpatient GC_BAHC_Spa PRIV PRIV [id number] [facility] 02:49:00 02:49:00 ngler_G [id number] Med[facility] l 2021-09-01 2021-09-01 Outpatient GC_BAHC_Spa PRIV PRIV [id number] [facility] 01:43:00 01:43:00 ngler_G [id number] Medica l 2021-09-01 2021-09-01 Outpatient Seiter, PRIV PRIV [id number] 00:00:00 00:00:00 Roni Konrad [id number] 2021-08-20 2021-08-20 Outpatient GC_BAHC_Spa PRIV PRIV [id number] [facility] 10:08:00 10:08:00 ngler_G [id number] Medica l 2021-08-20 2021-08-20 ambulatory STLMLC [facility] [id number] [facility] 2021-08-19 2021-08-19 Outpatient GC_BAHC_Spa PRIV PRIV [id number] [facility] 03:43:00 03:43:00 ngler_G [id number] Medica l 2021-08-18 2021-08-18 Outpatient GC_BAHC_Spa PRIV PRIV [id number] [facility] 02:54:00 02:54:00 Stephan [id number] Medica l 2021-08-18 2021-08-18 Outpatient Andrae, PRIV PRIV [id number] 00:00:00 00:00:00 Roni Silvestre [id number] 2021-08-15 2021-08-15 Outpatient GC_BAHC_Spa PRIV PRIV [id number] [facility] 12:34:00 12:34:00 Stephan [id number] Medica l 2021-08-06 2021-08-06 ambulatory STLMLC STLMLC [id number] [facility]00 [facility] 2019-10-26 2019-10-26 Outpatient Taqueria-Mbayo VFP VFP [id number] [facility] 06:18:00 06:18:00 _A_AH [id number] [facility] Practic e 2019-10-26 2019-10-26 Outpatient Taqueria-Mbayo VFP VFP [id number] [facility] 06:18:00 06:18:00 _A_AH [id number] Family Practic e 2019-10-26 2019-10-26 Outpatient Taqueria-Mbayo VFP VFP [id number] [facility] 06:18:00 06:18:00 _A_AH [id number] Family Practic e 2018-03-23 2018-03-23 [facility] [id number] [facility] 13:45:00 13:45:00 [facility] 2018-02-08 2018-02-08 [facility] [id number] [facility] 11:00:00 11:00:00 [facility] Results This patient has no known results.
[2021-10-10] MEDS ORDERED: FUROSEMIDE 40 MG/4 ML VIAL ONE (00:33)
[2021-10-10] MEDS ORDERED: NITROGLYCERIN/D5W 50 MG/250 ML BTL IV ONE (00:37)
[2021-10-10 00:45] LABS: Arterial Blood Carboxyhemoglob 0.9 % (0-1.5); Blood Gas Oxyhemoglobin 97.5 % (94-97); Blood O2 Saturation 99.2 % (92-98.5)
[2021-10-10 00:48] LABS: Absolute Lymphocytes (CBC) 0.9 K/uL (0.7-4.9); Hematocrit 49.6 % (39.6-49.0); Lymphocytes % 20.3 % (15.3-44.8); MPV 9.4 fL (7.6-11.3); RBC Red Blood Cell Count 5.06 M/uL (4.33-5.43)
[2021-10-10 01:07] LABS: Protime INR 1.4
[2021-10-10] MEDS ORDERED: AMIODARONE HCL 150 MG/3 ML INJ IV ONE (01:16)
[2021-10-10 01:29] LABS: Albumin 4.1 g/dL (3.4-5.0); Bilirubin Direct 0.5 mg/dL (0-0.2); Bilirubin Total 2.2 mg/dL (0.2-1.0); Potassium 5.1 mmol/L (3.5-5.1); Protein, Total 9.1 g/dL (6.4-8.2); Thyroid Stimulating Hormone 6.82 uIU/mL (0.360-3.740); Troponin High Sensitivity 34.2 pg/mL (<58.9)
[2021-10-10 01:31] LABS: Urine Blood Negative (Negative); Urine Glucose Negative (Negative); Urine Protein 2+ (Negative); Urine Specific Gravity >=1.030 (1.005-1.030)
[2021-10-10 01:58] LABS: Barbiturates NEGATIVE (NEGATIVE); Benzodiazepines NEGATIVE (NEGATIVE); Cocaine NEGATIVE (NEGATIVE); METHAMPHETAM NEGATIVE (NEGATIVE); Methadone NEGATIVE (NEGATIVE); Opiates NEGATIVE (NEGATIVE); Phencyclidine NEGATIVE (NEGATIVE)
[2021-10-10 01:59] LABS: THC Cannibis POSITIVE (NEGATIVE)
[2021-10-10 02:00] LABS: SARS-COV-2 RT PCR POSITIVE (NEGATIVE)
[2021-10-10] MEDS ORDERED: ASPIRIN 81 MG CHEWABLE TABLET ONE (02:16)
--- NOTE | 2021-10-10 03:28 | EDPHYS ---
Physician Documentation [facility] Name: Naveed Vieira Age: 56 yrs Sex: Male : 1965 Arrival Date: 10/10/2021 Time: 00:21 Bed 4 Private MD: ED Physician Montez Chowdhury HPI: 10/10 00:42 This 56 yrs old Male presents to ER via EMS with complaints of Chest pain. Shortness of mh7 breath. 00:42 The patient or guardian reports chest pain that is located primarily in the substernal mh7 area. Onset: last night, at an unknown time. The pain does not radiate. Associated signs and symptoms: Pertinent positives: shortness of breath, Pertinent negatives: abdominal pain, cough, diaphoresis, dizziness, headache, lower extremity pain, lower extremity swelling, lightheadedness, nausea, near syncope, palpitations, recent travel, syncope, vomiting. The chest pain is described as a pressure. Duration: The patient or guardian reports multiple episodes, that are intermittent, that wax and wane, with no pattern. Modifying factors: The symptoms are alleviated by nothing. the symptoms are aggravated by nothing. Severity of pain: At its worst the pain was moderate today, in the emergency department the pain is unchanged. EMS care prior to arrival includes: albuterol neb, Adenosine. Historical: - Allergies: 00:41 No Known Allergies; bb - Home Meds: 00:41 Unable to obtain [Active]; bb - PMHx: 00:41 Alcoholism; Atrial fibrillation; lopressor/dig; Chronic obstructive lung disease; bb Congestive heart failure; EF 12% 2020; - Immunization history:: Client reports having NOT received the Covid vaccine. - Social history:: Smoking status: Patient reports the use of cigarette tobacco products, Patient uses alcohol, Patient/guardian denies using street drugs. ROS: 00:42 Constitutional: Negative for fever, chills, and weight loss, Eyes: Negative for injury, mh7 pain, redness, and discharge, ENT: Negative for injury, pain, and discharge, Neck: Negative for injury, pain, and swelling, Abdomen/GI: Negative for abdominal pain, nausea, vomiting, diarrhea, and constipation, Back: Negative for injury and pain, : Negative for injury, bleeding, discharge, and swelling, MS/Extremity: Negative for injury and deformity, Skin: Negative for injury, rash, and discoloration, Neuro: Negative for headache, weakness, numbness, tingling, and seizure, Psych: Negative for depression, anxiety, suicide ideation, homicidal ideation, and hallucinations, Allergy/Immunology: Negative for hives, rash, and allergies, Endocrine: Negative for neck swelling, polydipsia, polyuria, polyphagia, and marked weight changes, Hematologic/Lymphatic: Negative for swollen nodes, abnormal bleeding, and unusual bruising. Exam: 00:42 Head/Face: Normocephalic, atraumatic. Eyes: Pupils equal round and reactive to light, mh7 extra-ocular motions intact. Lids and lashes normal. Conjunctiva and sclera are non-icteric and not injected. Cornea within normal limits. Periorbital areas with no swelling, redness, or edema. Neck: Trachea midline, no thyromegaly or masses palpated, and no cervical lymphadenopathy. Supple, full range of motion without nuchal rigidity, or vertebral point tenderness. No Meningismus. Chest/axilla: Normal chest wall appearance and motion. Nontender with no deformity. No lesions are appreciated. 00:42 Abdomen/GI: Soft, non-tender, with normal bowel sounds. No distension or tympany. No guarding or rebound. No evidence of tenderness throughout. Back: No spinal tenderness. No costovertebral tenderness. Full range of motion. Skin: Warm, dry with normal turgor. Normal color with no rashes, no lesions, and no evidence of cellulitis. MS/ Extremity: Pulses equal, no cyanosis. Neurovascular intact. Full, normal range of motion. Neuro: Awake and alert, GCS 15, oriented to person, place, time, and situation. Cranial nerves II-XII grossly intact. Motor strength 5/5 in all extremities. Sensory grossly intact. Cerebellar exam normal. Normal gait. Psych: Awake, alert, with orientation to person, place and time. Behavior, mood, and affect are within normal limits. 00:42 Constitutional: The patient appears alert, awake, in obvious distress, moderately distressed, obviously ill. 00:42 Cardiovascular: Rate: tachycardic, Rhythm: irregularly irregular, Pulses: no pulse deficits are appreciated, Heart sounds: normal, normal S1and S2, Edema: pedal edema, that is moderate, JVD: is not appreciated. 00:42 Respiratory: moderate respiratory distress is noted, Respirations: tachypnea, that is moderate, Breath sounds: rales, that are moderate, are heard diffusely, rhonchi, that are mild, are scattered, Respiratory rate: 30 Vital Signs: 00:18 BP 136 / 76; Pulse 181; Resp 30; Pulse Ox 80% on Non-rebreather mask; st1 00:23 BP 136 / 56; Pulse 134; Resp 30; Pulse Ox 75% on Non-rebreather mask; st1 00:30 BP 165 / 96; Pulse 187; Resp 30 S; Pulse Ox 83% on R/A; Weight 88.45 kg (R); Height 5 bb ft. 6 in. (167.64 cm) (R); 00:30 BP 165 / 96; Pulse 135; Resp 25; Pulse Ox 100% on BiPAP; st1 00:35 BP 184 / 147; Pulse 138; Resp 24; Pulse Ox 100% on BiPAP; st1 00:40 BP 109 / 80; Pulse 138; Resp 28; st1 00:43 BP 106 / 84; Pulse 138; Resp 35; Pulse Ox 80% on BiPAP; st1 00:45 BP 96 / 76; Pulse 134; Resp 29; st1 00:50 BP 86 / 53; Pulse 126; Resp 30; Pulse Ox 87% on BiPAP; st1 00:55 BP 87 / 72; Pulse 126; Resp 30; Pulse Ox 86% on BiPAP; st1 01:03 BP 97 / 63; Pulse 120; Resp 28; Pulse Ox 90% on BiPAP; st1 02:01 BP 99 / 78; Pulse 106; Resp 32; Pulse Ox 90% ; vc1 03:00 BP 86 / 72; Pulse 108; Resp 33; Pulse Ox 93% on BiPAP; vc1 04:00 BP 171 / 102; Pulse 94; Resp 28; Pulse Ox 99% on BiPAP; vc1 00:30 Body Mass Index 31.47 (88.45 kg, 167.64 cm) bb Procedures: 08:03 Central Line: the site was prepped with Betadine, in sterile fashion, a triple lumen khari catheter was inserted, in the right femoral vein, in 1 attempts. placement was verified, the site was dressed with using sterile technique, the patient tolerated the procedure, well. MDM: 03:25 Differential diagnosis: abnormal EKG, acute myocardial infarction, acute pericarditis, [facility] anxiety, coronary artery disease chest wall pain, congestive heart failure costochondritis, esophagitis, gastritis, gastroesophageal reflux disease (GERD), pericarditis, pneumonia. HEART Score: History: Moderately Suspicious (1), ECG: Non specific repolarization disturbance / LBTB / PM (1), Age: > 45 and < 65 years (1), Risk Factors: 1 or 2 risk factors (1), [Hypertension] Troponin: < or = 1 x Normal Limit (0), Total Score = 4. Data reviewed: vital signs, nurses notes, old medical records, lab test result(s), cardiac enzymes, CBC, electrolytes, EKG, radiologic studies, plain films. Data interpreted: Pulse oximetry: on BiPAP is 98 %. Interpretation: acceptable. Counseling: I had a detailed discussion with the patient and/or guardian regarding: the historical points, exam findings, and any diagnostic results supporting the discharge/admit diagnosis, lab results, radiology results, the need for further work-up and treatment in the hospital. 03:27 Patient medically screened. [facility] 10/10 00:23 Order name: Basic Metabolic Panel [facility] 10/10 00:23 Order name: CBC with Diff; Complete Time: 01:18 [facility] 10/10 00:23 Order name: LFT's [facility] 10/10 00:23 Order name: Magnesium [facility] 10/10 00:23 Order name: NT PRO-BNP [facility] 10/10 00:23 Order name: PT-INR; Complete Time: 01:18 [facility] 10/10 00:23 Order name: Troponin HS [facility] 10/10 00:23 Order name: ETOH Level; Complete Time: 01:37 [facility] 10/10 00:23 Order name: UDS; Complete Time: 02:41 [facility] 10/10 00:26 Order name: COVID-19/FLU A+B (Document "Date of Onset" if Symptomatic); Complete Time: [facility] :41 10/10 00:41 Order name: Thyroid Stimulating Hormone [facility] 10/10 00:43 Order name: ABG Arterial Blood Gas; Complete Time: 00:56 [facility] 10/10 01:32 Order name: Urine Dipstick-Ancillary; Complete Time: 01:37 [facility] 10/10 00:23 Order name: XRAY Chest (1 view) [facility] 10/10 01:32 Order name: T4 Free [facility] 10/10 01:32 Order name: Urine Dipstick-Ancillary [facility] 10/10 03:34 Order name: Digoxin Level; Complete Time: 07:15 [facility] 10/10 05:30 Order name: Glucose, Ancillary Testing; Complete Time: 07:15 [facility] 10/10 06:49 Order name: C-Reactive Protein; Complete Time: 07:15 [facility] 10/10 06:49 Order name: Ferritin; Complete Time: 07:15 [facility] 10/10 07:17 Order name: Blood Culture Adult (2) [facility] 10/10 07:17 Order name: Lactate [facility] 10/10 07:24 Order name: Procalcitonin [facility] 10/10 07:41 Order name: CBC with Automated Diff [facility] 10/10 08:27 Order name: Glucose, Ancillary Testing [facility] 10/10 08:34 Order name: ABG Arterial Blood Gas [facility] 10/10 09:58 Order name: Comprehensive Metabolic Panel [facility] 10/10 10:09 Order name: Manual Differential [facility] 10/10 12:04 Order name: Blood Culture [facility] 10/10 00:23 Order name: EKG; Complete Time: 00:24 [facility] 10/10 00:23 Order name: Cardiac monitoring; Complete Time: 00:44 [facility] 10/10 00:23 Order name: EKG - Nurse/Tech; Complete Time: 00:44 [facility] 10/10 00:23 Order name: IV Saline Lock; Complete Time: 00:44 [facility] 10/10 00:23 Order name: Labs collected and sent; Complete Time: 00:44 [facility] 10/10 00:23 Order name: O2 Per Protocol; Complete Time: 00:44 [facility] 10/10 00:23 Order name: O2 Sat Monitoring; Complete Time: 00:44 [facility] 10/10 00:23 Order name: Urine Dipstick-Ancillary (obtain specimen); Complete Time: 02:19 [facility] 10/10 00:46 Order name: BIPAP [facility] 10/10 03:29 Order name: CONS Physician Consult [facility] 10/10 07:17 Order name: Central Line Kit [facility] 10/10 07:19 Order name: CT Traumagram (Head C Spine CAP wo con) [facility] 10/10 09:38 Order name: RAD EDSC Administered Medications: 00:22 Drug: amiodarone 150 mg Route: IVP; Site: left wrist; st1 00:40 Drug: Nitro Drip - (Nitroglycerin 50 mg, D5W 250 ml) Route: IV; Rate: 5 mcg/min; Site: st1 right forearm; 01:51 Drug: Lasix (furosemide) 40 mg Route: IVP; Site: right hand; st1 01:56 Drug: amiodarone 360 mg Route: IV; Rate: 1 mg/min; Site: right hand; st1 02:19 Drug: Aspirin Chewable Tablet 324 mg Route: PO; ll3 14:00 Not Given (Patient ): Pepcid (famotidine) 40 mg IVP once; dilute with 10 mL 0.9% ap3 NaCl; give over 2 minutes Disposition Summary: 10/10/21 03:28 Hospitalization Ordered Hospitalization Status: Inpatient Admission [facility] Provider: Pankaj Mead Condition: Stable [facility] Problem: an acute exacerbation [facility] Symptoms: have improved [facility] Bed/Room Type: Standard [facility] Location: [facility] ER HOLD(10/10/21 03:33) [facility] Room Assignment: ERHOLD-(10/10/21 03:33) eb1 Diagnosis - Persistent atrial fibrillation - With RVR [facility] - Acute on chronic combined systolic (congestive) and diastolic (congestive) heart [facility] failure - Coronavirus infection, unspecified [facility] Forms: - Medication Reconciliation Form [facility] - SBAR form [facility] Signatures: Dispatcher [employer] EDSC Montez Chowdhury MD MD cha Ballard, Brenda RN Aida Gee RN RN eb1 Doug Fowler MD MD Miller Linder RN RN 3 Ronit Solis RN RN st1 Deepa Lewis RN ap3 Corrections: (The following items were deleted from the chart) 00:41 00:34 THYROID STIMULAT HORMONE+C.LAB.BRZ ordered. [facility] 03:33 03:28 Telemetry/MedSurg (Inpatient) [facility] eb 03:33 03:28 [place] [id number]
--- NOTE | 2021-10-10 03:28 | ER ---
Nurse's Notes [facility] Name: Naveed Vieira Age: 56 yrs Sex: Male : 1965 Arrival Date: 10/10/2021 Time: 00:21 Bed 4 Private MD: Diagnosis: Persistent atrial fibrillation-With RVR;Acute on chronic combined systolic (congestive) and diastolic (congestive) heart failure;Coronavirus infection, unspecified Presentation: 10/10 00:30 Chief complaint: EMS states: they were toned out for report of pt with chest pain and bb difficulty breathing pt HR in 200s on their arrival. Coronavirus screen: At this time, the client does not indicate any symptoms associated with coronavirus-19. Ebola Screen: No symptoms or risks identified at this time. Initial Sepsis Screen: Does the patient meet any 2 criteria? RR > 20 per min. HR > 90 bpm. Does the patient have a suspected source of infection? No. Patient's initial sepsis screen is negative. Risk Assessment: Do you want to hurt yourself or someone else? Patient reports no desire to harm self or others. Onset of symptoms was October 10, 2021. 00:30 Method Of Arrival: EMS: [facility] bb 00:30 Acuity: INDIO 2 bb 00:44 Care prior to arrival: Medication(s) given: Adenosine, 6 mg, 12 mg, x 2, IV initiated. bb 18 GA, in the left wrist, Oxygen administered. via a non-rebreather mask. Triage Assessment: 00:41 General: Appears distressed, Behavior is cooperative, anxious. Pain: Complains of pain bb in chest. Neuro: Level of Consciousness is awake, alert, obeys commands, Oriented to person, place, situation. Cardiovascular: Heart tones present Rhythm is atrial fibrillation with rapid ventricular response. Respiratory: Airway is patent Respiratory effort is labored, Respiratory pattern is tachypnea Breath sounds are diminished bilaterally. Derm: Skin is dusky. Musculoskeletal: Circulation, motion, and sensation intact. Historical: - Allergies: 00:41 No Known Allergies; bb - Home Meds: 00:41 Unable to obtain [Active]; bb - PMHx: 00:41 Alcoholism; Atrial fibrillation; lopressor/dig; Chronic obstructive lung disease; bb Congestive heart failure; EF 12% 2020; - Immunization history:: Client reports having NOT received the Covid vaccine. - Social history:: Smoking status: Patient reports the use of cigarette tobacco products, Patient uses alcohol, Patient/guardian denies using street drugs. Screenin:57 Abuse screen: Denies threats or abuse. Nutritional screening: No deficits noted. st1 Tuberculosis screening: No symptoms or risk factors identified. Fall Risk None identified. No fall in past 12 months (0 pts). No secondary diagnosis (0 pts). IV access (20 points). Ambulatory Aid- Crutches/Cane/Walker (15 pts). Gait- Weak (10 pts.). Mental Status- Oriented to own ability (0 pts). Total Sykes Fall Scale indicates Low Risk Score (25-44 pts). Fall prevention measures have been instituted. Side Rails Up X 2 Placed close to Nursing Station Frequent Obs/Assesments occuring As available Patient and Family Educated on Fall Prevention Program and strategies. Assessment: 00:30 General: Appears uncomfortable, unkempt, Behavior is cooperative, anxious, Pt placed on ll3 Bipap by RT, tolerated well. Neuro: Level of Consciousness is awake, alert, obeys commands, Oriented to person, place, time, situation. Respiratory: Airway is patent Trachea midline Respiratory effort is labored, with nasal flaring, Respiratory pattern is tachypnea Patient placed on BiPAP:. Derm: Skin is clammy, diaphoretic, moist. 01:08 General: At 0050 the patients BP dropped to 87/72 the Nitroglycerin drip was stopped. st1 at 0103 the patients BP increased to 97/73. . 02:28 Reassessment: Patient and/or family updated on plan of care and expected duration. Pain ll3 level reassessed. Pt is awake and alert, agitated and cooperative. 03:00 Reassessment: The patient is attempting to remove his bipap. He has been reminded that st1 it is necessary to have the bipap in place to assist in his breathing. The patient stated, " I want this machine off to be able to breathe". I reassured the patient that the bipap is helping him. 03:15 Reassessment: the patient pulled off hi bipap and education was once again provided to st1 the patient about leaving the bipap on his face to ensure he is getting oxygenation. the patient appeared to be anxious and moving all over the bed. 04:00 Reassessment: Patient and/or family updated on plan of care and expected duration. Pain ll3 level reassessed. Pt is awake and alert, agitated and repeatedly taking BiPAP mask off. Vital Signs: 00:18 BP 136 / 76; Pulse 181; Resp 30; Pulse Ox 80% on Non-rebreather mask; st1 00:23 BP 136 / 56; Pulse 134; Resp 30; Pulse Ox 75% on Non-rebreather mask; st1 00:30 BP 165 / 96; Pulse 187; Resp 30 S; Pulse Ox 83% on R/A; Weight 88.45 kg (R); Height 5 bb ft. 6 in. (167.64 cm) (R); 00:30 BP 165 / 96; Pulse 135; Resp 25; Pulse Ox 100% on BiPAP; st1 00:35 BP 184 / 147; Pulse 138; Resp 24; Pulse Ox 100% on BiPAP; st1 00:40 BP 109 / 80; Pulse 138; Resp 28; st1 00:43 BP 106 / 84; Pulse 138; Resp 35; Pulse Ox 80% on BiPAP; st1 00:45 BP 96 / 76; Pulse 134; Resp 29; st1 00:50 BP 86 / 53; Pulse 126; Resp 30; Pulse Ox 87% on BiPAP; st1 00:55 BP 87 / 72; Pulse 126; Resp 30; Pulse Ox 86% on BiPAP; st1 01:03 BP 97 / 63; Pulse 120; Resp 28; Pulse Ox 90% on BiPAP; st1 02:01 BP 99 / 78; Pulse 106; Resp 32; Pulse Ox 90% ; vc1 03:00 BP 86 / 72; Pulse 108; Resp 33; Pulse Ox 93% on BiPAP; vc1 04:00 BP 171 / 102; Pulse 94; Resp 28; Pulse Ox 99% on BiPAP; vc1 00:30 Body Mass Index 31.47 (88.45 kg, 167.64 cm) bb ED Course: 00:21 Patient arrived in ED. mw2 00:23 Doug Fowler MD is Attending Physician. mh7 00:25 Arm band placed on Patient placed in an exam room, on a stretcher, on oxygen, on bb radiographer cardiac catheterization, on pulse oximetry. Patient RT at bedside for placement of Bipap. EKG completed in triage. Results shown to MD. 00:41 Triage completed. bb 00:57 Ronit Solis, RN is Primary Nurse. st1 00:57 Inserted saline lock: 20 gauge in right hand, using aseptic technique. st1 00:59 Patient has correct armband on for positive identification. Fall risk band placed. Bed st1 in low position. Call light in reach. Side rails up X2. desk monitor on. Pulse ox on. NIBP on. Verbal reassurance given. 01:50 BIPAP Sent. st1 01:51 COVID-19/FLU A+B (Document "Date of Onset" if Symptomatic) Sent. st1 01:51 UDS Sent. st1 02:21 Lights dimmed. Warm blanket given. Pillow given. Head of bed lowered. Assisted with ll3 urinal. 02:22 Initial lab(s) drawn, by ED staff, sent to lab. Urine collected: clean catch specimen, ll3 clear, EKG done, by ED staff, reviewed by Doug Fowler MD COVID swab sent to lab. Legal drug screen obtained per protocol. O2 via BiPAP. 03:17 XRAY Chest (1 view) In Process Unspecified. EDMS 03:26 Pankaj Mead is Hospitalizing Provider. mh7 04:00 Awaiting bed assignment, Awaiting: See [facility] for further documentation. ll3 04:00 No provider procedures requiring assistance completed. Patient admitted, IV remains in vc1 place. 04:14 Digoxin Level Sent. st1 08:02 Attending Physician role handed off by Doug Fowler MD khari 08:02 Montez Chowdhury MD is Attending Physician. khari 09:03 Police [place] [facility] called and pen tender paged out. eb 09:57 Notified ED physician of a critical lab result(s). K 6.9, AST 949, ALT 638, calcium 6.5.ss Administered Medications: 00:22 Drug: amiodarone 150 mg Route: IVP; Site: left wrist; st1 00:40 Drug: Nitro Drip - (Nitroglycerin 50 mg, D5W 250 ml) Route: IV; Rate: 5 mcg/min; Site: st1 right forearm; 01:51 Drug: Lasix (furosemide) 40 mg Route: IVP; Site: right hand; st1 01:56 Drug: amiodarone 360 mg Route: IV; Rate: 1 mg/min; Site: right hand; st1 02:19 Drug: Aspirin Chewable Tablet 324 mg Route: PO; ll3 14:00 Not Given (Patient ): Pepcid (famotidine) 40 mg IVP once; dilute with 10 mL 0.9% ap3 NaCl; give over 2 minutes Outcome: 03:27 Decision to Hospitalize by Provider. 7 04:00 Admitted to ER Hold. Please see [facility] for further documentation. vc1 04:00 Condition: good 04:00 Instructed on the need for admit. vc1 17:36 Patient left the ED. ss Signatures: Dispatcher [employer] EDMS Montez Chowdhury MD MD cha Ballard, Brenda RN RN bb Diane Horowitz RN RN Hernan Fernandez 2 Samantha Merida Maurice, MD MD [facility] Miller Pendleton RN RN ll3 Ronit Solis RN RN st1 Sunita Arnold RN RN vc1 Deepa Lewis RN ap3 Corrections: (The following items were deleted from the chart) 02:28 01:52 Reassessment: st1 ll3 04:57 02:28 Reassessment: Patient and/or family updated on plan of care and expected ll3 duration. Pain level reassessed. ll3 04:57 04:39 Reassessment: ll3 ll3 05:00 02:28 Reassessment: Patient and/or family updated on plan of care and expected ll3 duration. Pain level reassessed. Pt placed on Bipap by RT ll3 05:05 00:30 General: See triage assessment. ll3 ll3 05:05 02:28 Reassessment: Patient and/or family updated on plan of care and expected ll3 duration. Pain level reassessed. ll3 07:23 07:13 Reassessment: the patient pulled off hi bipap and education was once again st1 provided to the patient about leaving the bipap on his face to ensure he is getting oxygenation. the patient appeared to be anxious and moving all over the bed. st1 07:26 02:28 Reassessment: Patient and/or family updated on plan of care and expected ll3 duration. Pain level reassessed. Pt is awake and alert, calm and cooperative ll3
--- NOTE | 2021-10-10 03:43 | P.HP ---
Certification for Inpatient Patient admitted to: Inpatient With expected LOS: >2 Midnights Patient will require the following post-hospital care: None Practitioner: I am a practitioner with admitting privileges, knowledge of patient current condition, hospital course, and medical plan of care. Services: Services provided to patient in accordance with Admission requirements found in Title 42 Section 412.3 of the Code of Federal Regulations <Lavelle Phillips Jessica - Last Filed: 10/10/21 03:34> Patient History Date of Service: 10/10/21 Reason for admission: CHF exacerbation, COVID History of Present Illness: Mr. Vieira is a 56 yo M with alcoholic cardiomyopathy, systolic CHF with EF of 12% on LifeVest, and atrial fibrillation on eliquis who presents with increasing shortness of breath and dyspnea on exertion beginning last night. He was brought in by EMS and placed on BIPAP for respiratory distress. He was in afib with RVR, and was placed on amiodarone and nitrate drip. Nitrate drip was discontinued once his blood pressure was controlled. He appears comfortable at bedside, and is able to talk in complete sentences. He reports wheezing, night sweats, headache. Denies fever, diarrhea. He has removed the batteries from his LifeVest. He has been noncompliant with his medications and says that his medications have caused him to be sick. He has not been compliant with fluid restriction. He continues to drink alcohol and smoke 1ppd. HOC3 20 BUN20 Cr 1.77 GFR 40 Glu 169 Tbili 2.2 Dbili 0.5 AST 81 alk phos 296 BNP 18689 COVID+. UDS+ for THC. - Past Medical/Surgical History Diabetic: No -: COPD -: Alcohol abuse -: Tobacco abuse -: Alcoholic cardiomyopathyEF 12% -: Atrial fibrillation on chronic anticoagulation the -: Cirrhosis of liver -: LifeVest -: Hypertension -: Systolic CHF -: Appendectomy Psychosocial/ Personal History: Unemployed, lives at home with family - Family History Father -: Diabetes Mother -: Diabetes - Social History Smoking Status: Current every day smoker Alcohol use: Yes CD- Drugs: No Caffeine use: Yes Place of Residence: Home <Lavelle Phillips - Last Filed: 10/10/21 03:34> Date of Service: 10/10/21 <Tamika Gonzales - Last Filed: 10/10/21 09:40> Allergies No Known Allergies Allergy (Verified 08/09/21 23:35) Home Medications: Digoxin [Lanoxin*] 0.125 mg PO DAILY #30 tab 08/02/21 Folic Acid 1 mg PO DAILY #30 tablet 08/02/21 Spironolactone [Aldactone] 25 mg PO DAILY #30 tablet 08/02/21 Thiamine HCl [Vitamin B-1*] 100 mg PO DAILY #30 tablet 08/02/21 lisinopriL [Prinivil*] 2.5 mg PO DAILY #30 tab 08/02/21 Apixaban [Eliquis] 5 mg PO BID #60 tablet 08/12/21 Metoprolol Tartrate [Lopressor] 100 mg PO BID #60 tablet 08/12/21 Review of Systems 10-point ROS is otherwise unremarkable General: Sweats, Unremarkable Eyes: Unremarkable ENT: Unremarkable Respiratory: Cough, Shortness of Breath, SOB with Excertion, Sputum Cardiovascular: Unremarkable Gastrointestinal: Nausea Genitourinary: Unremarkable Musculoskeletal: Unremarkable Integumentary: Unremarkable Neurological: Unremarkable <Lavelle Phillips - Last Filed: 10/10/21 03:34> Physical Examination - Physical Exam General: Alert HEENT: Atraumatic, PERRLA, Mucous membr. moist/pink, EOMI, Sclerae nonicteric Neck: Supple, 2+ carotid pulse no bruit, No LAD, Without JVD or thyroid abnormality Respiratory: Diminished, Crackles/rales Cardiovascular: Regular rate/rhythm, Normal S1 S2 Gastrointestinal: Normal bowel sounds, No tenderness Musculoskeletal: No tenderness Integumentary: No rashes Neurological: Normal speech, Normal strength at 5/5 x4 extr, Normal tone, Normal affect Lymphatics: No axilla or inguinal lymphadenopathy - Studies Laboratory Data (last 24 hrs) 10/10/21 00:45: PT 16.1 H, INR 1.40 10/10/21 00:34: WBC 4.40, Hgb 15.4, Hct 49.6 H, Plt Count 207 10/10/21 00:34: Sodium 137, Potassium 5.1, BUN 20 H, Creatinine 1.77 H, Glucose 169 H, Total Bilirubin 2.2 H, AST 81 H, ALT 70, Alkaline Phosphatase 296 H <Lavelle Phillips - Last Filed: 10/10/21 03:34> - Studies Laboratory Data (last 24 hrs) 10/10/21 00:45: PT 16.1 H, INR 1.40 10/10/21 00:34: WBC 4.40, Hgb 15.4, Hct 49.6 H, Plt Count 207 10/10/21 00:34: Sodium 137, Potassium 5.1, BUN 20 H, Creatinine 1.77 H, Glucose 169 H, Total Bilirubin 2.2 H, AST 81 H, ALT 70, Alkaline Phosphatase 296 H <Tamika Gonzales - Last Filed: 10/10/21 09:40> Assessment and Plan - Problems (Diagnosis) (1) JEFFREY (acute kidney injury) Current Visit: Yes Status: Acute (2) COVID Current Visit: Yes Status: Acute (3) Acute systolic heart failure Current Visit: No Status: Acute (4) Alcoholic cardiomyopathy Current Visit: No Status: Acute (5) Hepatic congestion Current Visit: No Status: Acute (6) Rapid atrial fibrillation Current Visit: No Status: Acute - Plan cardiology consulted continue IV lasix, fluid restriction, low sodium diet, daily weights reconcile home metoprolol, digoxin, eliquis on BIPAP, RT consulted alcohol withdrawal assessments sliding scale insulin and accuchecks continue covid supplements CRP, ferritin, procal pending Discharge Plan: Home Plan to discharge in: 72 Hours - Advance Directives Does patient have a Living Will: No Does patient have a Durable POA for Healthcare: Yes - Code Status/Comfort Care Code Status Assessed: Yes (full code ) Critical Care: No Time Spent Managing Pts Care (In Minutes): 70 <Lavelle Phillips - Last Filed: 10/10/21 03:34> Date of Service: 10/10/21 Subjective: HPI as mentioned above Physical Examination: Vitals: Afebrile vital signs are stable Physical exam: Cardiovascular: Within normal limits. Lungs: Within normal limits Abdomen: Within normal limits Neuro: Awake, alert, oriented to person place and time Assessment: 1. Alcoholic cardiomyopathy (EF<10%) 2. Liver cirrhosis 3. COPD Plan: 1. Continue with current plan of care as mentioned above <Tamika Gonzales - Last Filed: 10/10/21 09:40>
[2021-10-10] MEDS ORDERED: LORazepam 2 MG/ML VIAL ONE (04:17)
[2021-10-10] MEDS ORDERED: chlordiazePOXIDE HCl 5 MG CAP PO PRN (04:27)
[2021-10-10] MEDS ORDERED: BENZONATATE 100 MG CAP PO PRN (04:27)
[2021-10-10] MEDS ORDERED: LORazepam 2 MG/ML VIAL IV ONE (04:27)
[2021-10-10] MEDS ORDERED: ACETAMINOPHEN 500 MG TAB PO PRN (04:27)
[2021-10-10] MEDS ORDERED: ONDANSETRON 4 MG/2 ML VIAL IV PRN (04:27)
[2021-10-10] MEDS ORDERED: LORazepam 2 MG/ML VIAL IV PRN (04:32)
[2021-10-10] MEDS ORDERED: HYDRALAZINE HCL 20 MG/ML VIAL IV PRN (04:32)
[2021-10-10] MEDS ORDERED: FLUMAZENIL 0.1 MG/ML (5 mL VIAL) IV ONE (05:33)
[2021-10-10] MEDS ORDERED: propofoL 1,000 MG/100 ML VIAL IV ONE (05:37)
[2021-10-10] MEDS ORDERED: D5W 250 ML IV ONE (05:42)
[2021-10-10] MEDS ORDERED: EPINEPHRINE/PF 1 MG/ML AMP ONE (05:42)
[2021-10-10] MEDS ORDERED: HALOPERIDOL LACT 5 MG/ML INJ IV PRN (05:52)
[2021-10-10] MEDS ORDERED: MIDAZOLAM HCL 2 MG/2 ML INJ IV PRN (05:52)
[2021-10-10] MEDS ORDERED: propofoL 1,000 MG/100 ML VIAL IV PRN (05:52)
[2021-10-10] MEDS ORDERED: FENTANYL CITR 100 MCG/2 ML IV PRN (05:52)
[2021-10-10] MEDS ORDERED: MIDAZOLAM HCL 2 MG/2 ML INJ ONE ×2 (06:38→07:27)
[2021-10-10 06:49] LABS: C-Reactive Protein 11.5 mg/L (<3.00); Ferritin 569.7 ng/mL (26-388)
[2021-10-10] MEDS ORDERED: ACETAMINOPHEN 650MG/RECT SUPP PR PRN (06:54)
[2021-10-10 06:56] VITALS: TEMP 99.9
[2021-10-10] MEDS ORDERED: ACETAMINOPHEN 650MG/RECT SUPP PR ONE (06:57)
[2021-10-10] MEDS ORDERED: FENTANYL CITR 100 MCG/2 ML ONE (07:04)
[2021-10-10] MEDS ORDERED: VASOPRESSIN 80 UNIT in NA CHLORIDE 0.9% 250 ML IV PRN (07:06)
[2021-10-10] MEDS ORDERED: NA CHLORIDE 0.9% 1,000 ML ONE (07:20)
[2021-10-10] MEDS ORDERED: CEFEPIME 1 GM/VIAL ONE (07:23)
[2021-10-10] MEDS ORDERED: FAMOTIDINE 20 MG/2 ML VIAL IV ONE (07:23)
[2021-10-10] MEDS ORDERED: HYDROCORTISONE SUC 100 MG INJ ONE (07:23)
[2021-10-10] MEDS ORDERED: NA CHLORIDE 0.9% 100 ML IV ONE (07:23)
[2021-10-10] MEDS ORDERED: NA CHLORIDE 0.9% 500 ML ONE (07:23)
[2021-10-10] MEDS ORDERED: VANCOMYCIN 1 GM/VIAL ONE (07:23)
[2021-10-10] MEDS ORDERED: NA CHLORIDE 0.9% 3,000 ML ONE (07:24)
[2021-10-10] MEDS ORDERED: INSULIN -REGULAR HUMAN 50 UNIT/0.5 ML ML SQ SCH (07:30)
[2021-10-10 07:35] LABS: Absolute Lymphocytes (CBC) 0.8 K/uL (0.7-4.9); Hematocrit 40.4 % (39.6-49.0); Lymphocytes % 7.6 % (15.3-44.8); MPV 9.7 fL (7.6-11.3); RBC Red Blood Cell Count 3.84 M/uL (4.33-5.43)
[2021-10-10] MEDS ORDERED: ALBUTEROL 2.5 MG/3 ML NEB SOL NEB SCH (08:00)
[2021-10-10] MEDS ORDERED: NOREPINEPHRINE 4 MG in D5W 250 ML IV PRN (08:03)
[2021-10-10 08:29] VITALS: BP 76/28
[2021-10-10 08:32] LABS: Arterial Blood Carboxyhemoglob 0.5 % (0-1.5); Blood Gas Oxyhemoglobin 93.9 % (94-97); Blood O2 Saturation 95.4 % (92-98.5)
[2021-10-10] MEDS ORDERED: DOBUTAMINE 250 MG/250 ML BAG IV ONE (08:44)
[2021-10-10] MEDS ORDERED: APIXABAN 5 MG TABLET PO SCH (09:00)
[2021-10-10] MEDS ORDERED: NOREPINEPHRINE 4 MG in D5W 250 ML IV SCH (09:00)
[2021-10-10] MEDS ORDERED: FOLIC ACID 1 MG TABLET PO SCH (09:00)
[2021-10-10] MEDS ORDERED: ASCORBIC ACID 500 MG TABLET PO SCH (09:00)
[2021-10-10] MEDS ORDERED: HOME MED 1 EA UNK (Metoprolol Tartrate [Lopressor] 100 MG Tablet) PO SCH (09:00)
[2021-10-10] MEDS ORDERED: lisinopriL 5 MG TAB PO SCH (09:00)
[2021-10-10] MEDS ORDERED: SPIRONOLACTONE 25 MG TABLET PO SCH (09:00)
[2021-10-10] MEDS ORDERED: THIAMINE HCL 100 MG TABLET PO SCH (09:00)
[2021-10-10] MEDS ORDERED: ENOXAPARIN 40 MG/0.4 ML SQ SCH (09:00)
[2021-10-10] MEDS ORDERED: ZINC SULFATE 220 MG CAP PO SCH (09:00)
[2021-10-10] MEDS ORDERED: FAMOTIDINE 20 MG/2 ML VIAL IV SCH (09:00)
[2021-10-10] MEDS ORDERED: DIGOXIN 0.125 MG TABLET PO SCH (09:00)
[2021-10-10] MEDS ORDERED: VITAMIN D 1000 UNIT TAB PO SCH (09:00)
[2021-10-10] MEDS ORDERED: FUROSEMIDE 40 MG/4 ML VIAL IV SCH (09:00)
--- NOTE | 2021-10-10 09:17 | RAD REPORT ---
EXAM DESCRIPTION: RAD - Chest Single View - 10/10/2021 3:17 am CLINICAL HISTORY: Chest pain;SOB Chest pain. COMPARISON: Chest Single View dated 09/16/2021; Chest Single View dated 09/15/2021; Chest Single View dated 08/11/2021; Chest Single View dated 08/09/2021 FINDINGS: Portable technique limits examination quality. Moderate bilateral pulmonary opacities are present suggesting pulmonary edema. The heart is mildly en larged in size. No displaced fractures. IMPRESSION: Mild to moderate CHF suspected.
--- NOTE | 2021-10-10 09:37 | RAD REPORT ---
EXAM DESCRIPTION: RAD - Chest Single View - 10/10/2021 6:47 am CLINICAL HISTORY: intubation Chest pain. COMPARISON: Chest Single View dated 10/10/2021; Chest Single View dated 09/16/2021; Chest Single View dated 09/15/2021; Chest Single View dated 08/11/2021 FINDINGS: Portable technique limits examination quality. Tip of the endotracheal tube is at the level of the superior aortic arch. Moderate bilateral pulmonar y opacities, greater on the right. The heart is mildly enlarged in size. Enteric tube descends in the stomach.
--- NOTE | 2021-10-10 09:46 | P.DS ---
Discharge Date: 10/10/21 Disposition: Reason for Admission: CHF exacerbation, COVID Brief History of Present Illness: Mr. Vieira is a 56 yo M with alcoholic cardiomyopathy, systolic CHF with EF of 12% on LifeVest, and atrial fibrillation on eliquis who presents with increasing shortness of breath and dyspnea on exertion beginning last night. He was brought in by EMS and placed on BIPAP for respiratory distress. He was in afib with RVR, and was placed on amiodarone and nitrate drip. Nitrate drip was discontinued once his blood pressure was controlled. He appears comfortable at bedside, and is able to talk in complete sentences. He reports wheezing, night sweats, headache. Denies fever, diarrhea. He has removed the batteries from his LifeVest. He has been noncompliant with his medications and says that his medications have caused him to be sick. He has not been compliant with fluid restriction. He continues to drink alcohol and smoke 1ppd. Hospital Course: Patient had a cardiac arrest. Patient required resuscitation at around 0500. Patient was intubated and medications were started for sedation and patient was given vasopressors for hypotension. Patient has a history of alcoholic cardiomyopathy with an ejection fraction of less than 10%. Patient was not wearing his LifeVest because he was being defibrillated. He actually took the batteries out of the LifeVest. Patient had a CODE BLUE called. Patient had to be resuscitated. Emergency room physician arrived and patient was given ACLS protocol for asystole. Patient also was given bicarb for PEA to reverse possible acidosis. Continued with resuscitation, but patient was not responding. Decision was made to call the code at 856. Home Medications: Digoxin [Lanoxin*] 0.125 mg PO DAILY #30 tab 08/02/21 Folic Acid 1 mg PO DAILY #30 tablet 08/02/21 Spironolactone [Aldactone] 25 mg PO DAILY #30 tablet 08/02/21 Thiamine HCl [Vitamin B-1*] 100 mg PO DAILY #30 tablet 08/02/21 lisinopriL [Prinivil*] 2.5 mg PO DAILY #30 tab 08/02/21 Apixaban [Eliquis] 5 mg PO BID #60 tablet 08/12/21 Metoprolol Tartrate [Lopressor] 100 mg PO BID #60 tablet 08/12/21 Physician Discharge Instructions: Patient at 8:56 AM. Body was released to the home. Followup: Unknown,U [Primary Care Provider] - Time spent managing pt's care (in minutes): 60
[2021-10-10 09:53] LABS: Albumin 2.4 g/dL (3.4-5.0); Bilirubin Total 2.5 mg/dL (0.2-1.0); Protein, Total 5.5 g/dL (6.4-8.2)
[2021-10-10 09:58] LABS: Potassium 6.9 mmol/L (3.5-5.1)
[2021-10-10 10:09] LABS: Anisocytosis 1+; Blood Morphology Comment NOTED (NOT SEEN); Hypochromasia 1+; Macrocytosis 1+; Platelet Estimate ADEQ
[2021-10-10 17:11] LABS: Magnesium 1.8
[2021-10-10 17:54] VITALS: O2SAT 99
[2021-10-10] MEDS ORDERED: ATROPINE SULF 1 MG/10 ML SYR IV ONE (17:59)
[2021-10-10] MEDS ORDERED: D50W 25 GM/50 ML SYRINGE IV ONE (17:59)
[2021-10-10] MEDS ORDERED: EPINEPHrine 1 MG/10 ML SYR IV ONE (17:59)
== END 2021-10-10 18:00 | disposition expired | DRG 981 ==
LOC: ER 00:20 → ERHOLD 03:28
PROVIDERS: ADMIT Internal Medicine; ATTEND Internal Medicine
PROC: 5A02216 Assistance with Cardiac Output using Other Pump, Continuous (ICD-10-PCS; principal; 2021-10-10)
PROC: 5A1935Z Respiratory Ventilation, Less than 24 Consecutive Hours (ICD-10-PCS; 2021-10-10)
PROC: 0BH17EZ Insertion of Endotracheal Airway into Trachea, Via Natural or Artificial Opening (ICD-10-PCS; 2021-10-10)
PROC: 06HY33Z Insertion of Infusion Device into Lower Vein, Percutaneous Approach (ICD-10-PCS; 2021-10-10)
DX: U07.1 COVID-19 (principal); I50.21 Acute systolic (congestive) heart failure; I48.19 Other persistent atrial fibrillation; I42.6 Alcoholic cardiomyopathy; I50.22 Chronic systolic (congestive) heart failure; N17.9 Acute kidney failure, unspecified; E87.2 Acidosis; J44.9 Chronic obstructive pulmonary disease, unspecified; K74.60 Unspecified cirrhosis of liver; I95.9 Hypotension, unspecified; I46.9 Cardiac arrest, cause unspecified; F17.210 Nicotine dependence, cigarettes, uncomplicated; Z79.01 Long term (current) use of anticoagulants; Z56.0 Unemployment, unspecified; Z79.899 Other long term (current) drug therapy; Z91.14 Patient's other noncompliance with medication regimen
CPT/HCPCS: 0240U; 36415; 71045; 80048; 80053; 80076; 80162; 80307; 80320; 81003; 82728; 82805; 82947; 83735; 83880; 84145; 84439; 84443; 84484; 85025; 85610; 86140; 93005; 94002; 94003; 99285; J0171; J0282; J0692; J1250; J1720; J1940; J2250; J2704; J3010; J3370; J7030; J7040; J7050; J7060